=== PATIENT | female | born 1970 | race Caucasian/White ===

== ENCOUNTER 2018-10-04 06:11 | Day surgery (SDC) | payer BC, OTHER ==
[~2018-10-04 06:11] MED LIST: Lactated Ringers 1,000 ML IV SCH; Lidocaine 1%/Sod Bicarbonate in NS 8.4% 1 ML Syringe IDERM PRN; Sodium Chloride 0.9% 10 ML Syringe FLUSH PRN
[2018-10-04] MEDS ORDERED: Propofol 200 MG/20 ML SDV ONE (06:38)
[2018-10-04] MEDS ORDERED: fentaNYL 250 MCG/5 ML SDV ONE (06:38)
[2018-10-04] MEDS ORDERED: Rocuronium 50 MG/5 ML Vial ONE (06:38)
[2018-10-04] MEDS ORDERED: Midazolam 1 MG/ML 2 ML SDV ONE (06:38)
[2018-10-04] MEDS ORDERED: Lidocaine 1% PF 2 ML SDV ONE (06:38)
[2018-10-04] MEDS ORDERED: Ondansetron 4 MG/2 ML SDV ONE (06:38)
[2018-10-04] MEDS ORDERED: ceFAZolin 1 GM Vial ONE (06:42)
[2018-10-04] MEDS ORDERED: Bupivacaine 0.25% 30 ML SDV ONE (06:48)
--- NOTE | 2018-10-04 06:54 | PCM.PREANE ---
Preanesthetic Assessment - Anesthesia/Transfusion/Family Hx Anesthesia History: Prior Anesthesia Without Reaction Family History of Anesthesia Reaction: No Transfusion History: No Prior Transfusion(s) - Review of Systems General: No Symptoms Pulmonary: Cough (lisinopril makes her cough) Cardiovascular: No Symptoms Gastrointestinal: No Symptoms Neurological: No Symptoms Other: Reports: None - Physical Assessment NPO Status Date: 10/03/18 NPO Status Time: 23:00 O2 Sat by Pulse Oximetry: 96 Respiratory Rate: 16 Vital Signs: Last Vital Signs Temp 97.1 F 10/04/18 06:20 Pulse 83 10/04/18 06:20 Resp 16 10/04/18 06:20 BP 130/71 10/04/18 06:20 Pulse Ox 96 10/04/18 06:20 Height: 5 ft 2 in Weight: 81.193 kg ASA Class: 2 Mental Status: Alert & Oriented x3 Airway Class: Mallampati = 1 Dentition: Reports: Dentures (top and bottom) Thyro-Mental Finger Breadths: 3 Mouth Opening Finger Breadths: 3 ROM/Head Extension: Full Lungs: Clear to Auscultation, Normal Respiratory Effort Cardiovascular: Regular Rate, Regular Rhythm - Allergies Allergies/Adverse Reactions: Allergies Allergy/AdvReac Type Severity Reaction Status Date / Time amoxicillin [From Augmentin] Allergy Hives Verified 10/03/18 14:07 ciprofloxacin [From Cipro] Allergy Hives Verified 10/03/18 14:07 clavulanic acid Allergy Hives Verified 10/03/18 14:07 [From Augmentin] sulfamethoxazole Allergy Swelling Verified 10/03/18 14:07 [From Bactrim] trimethoprim [From Bactrim] Allergy Swelling Verified 10/03/18 14:07 - Blood Blood Available: No - Acknowledgements Anesthesia Type Planned: General Anesthesia Pt an Appropriate Candidate for the Planned Anesthesia: Yes Alternatives and Risks of Anesthesia Discussed w Pt/Guardian: Yes Pt/Guardian Understands and Agrees with Anesthesia Plan: Yes PreAnesthesia Questionnaire HEENT History: Reports: Impaired Vision Other HEENT History: wears glasses Cardiovascular History: Reports: Hypertension Respiratory History: Reports: None Genitourinary History: Reports: None 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: Musculoskeletal History: Reports: Other (See Below) Other Musculoskeletal History: right ankle sprain Neurological History: Reports: None Psychiatric History: Reports: None Endocrine/Metabolic History: Reports: None, Obesity/BMI 30+ Hematologic History: Reports: None Immunologic History: Reports: None Oncologic (Cancer) History: Reports: None Dermatologic History: Reports: None - Past Surgical History Head Surgeries/Procedures: Reports: None Cardiovascular Surgical History: Reports: None Respiratory Surgical History: Reports: None GI Surgical History: Reports: Appendectomy, Cholecystectomy, Colonoscopy Female Surgical History: Reports: Hysterectomy Male Surgical History: Reports: None Endocrine Surgical History: Reports: None Neurological Surgical History: Reports: None Oncologic Surgical History: Reports: None Dermatological Surgical History: Reports: None - SUBSTANCE USE Smoking Status *Q: Current Every Day Smoker (.5 to 1 ppd) Tobacco Use Within Last Twelve Months: Cigarettes Second Hand Smoke Exposure: Yes Days Per Week of Alcohol Use: 2 Number of Drinks Per Day: 1 Total Drinks Per Week: 2 Recreational Drug Use History: No - HOME MEDS Home Medications: Home Meds Lisinopril [Prinivil] 10 mg PO DAILY 10/03/18 [History] - CURRENT (IN HOUSE) MEDS Current Meds: Current Medications Albuterol (Proventil Neb Soln) 2.5 mg NEB ONETIME ONE Stop: 10/04/18 08:01 Lactated Ringer's (Ringers, Lactated) 1,000 mls @ 125 mls/hr IV ASDIRECTED TIA Stop: 10/04/18 23:00 Last Admin: 10/04/18 06:35 Dose: 125 mls/hr Lidocaine/Sodium Bicarbonate (Buffered Lidocaine 1% In Ns 8.4%) 0.25 ml IDERM ONETIME PRN PRN Reason: Prior to IV Start Stop: 10/04/18 18:00 Last Admin: 10/04/18 06:35 Dose: 0.25 ml Sodium Chloride (Saline Flush) 10 ml FLUSH ASDIRECTED PRN PRN Reason: Keep Vein Open Stop: 10/04/18 18:00 Discontinued Medications Albuterol (Proventil Neb Soln) 2.5 mg NEB ONETIME ONE Stop: 10/04/18 08:01 Cefazolin Sodium (Ancef) Confirm Administered Dose 2 gm .ROUTE .STK-MED ONE Stop: 10/04/18 06:43 Fentanyl (Sublimaze) Confirm Administered Dose 250 mcg .ROUTE .STK-MED ONE Stop: 10/04/18 06:39 Lidocaine HCl (Xylocaine-Mpf 1%) Confirm Administered Dose 4 ml .ROUTE .STK-MED ONE Stop: 10/04/18 06:39 Midazolam HCl (Versed 1 Mg/Ml) Confirm Administered Dose 2 mg .ROUTE .STK-MED ONE Stop: 10/04/18 06:39 Ondansetron HCl (Zofran) Confirm Administered Dose 4 mg .ROUTE .STK-MED ONE Stop: 10/04/18 06:39 Propofol (Diprivan 20 Ml) Confirm Administered Dose 200 mg .ROUTE .STK-MED ONE Stop: 10/04/18 06:39 Rocuronium [place] (Zemuron) Confirm Administered Dose 50 mg .ROUTE .STK-MED ONE Stop: 10/04/18 06:39
[2018-10-04] MEDS ORDERED: HYDROmorphone 0.5 MG/0.5 ML Syringe IVPUSH PRN (07:29)
[2018-10-04] MEDS ORDERED: Ondansetron 4 MG/2 ML SDV IVPUSH PRN (07:29)
[2018-10-04] MEDS ORDERED: Albuterol 0.083% 2.5 MG/3 ML Neb Soln NEB ONE ×2 (08:00)
[2018-10-04] MEDS ORDERED: ePHEDrine/Normal Saline 25 MG/5 ML Syringe ONE (08:00)
[2018-10-04] MEDS ORDERED: Lactated Ringers 1,000 ML ONE (08:00)
[2018-10-04] MEDS ORDERED: Ketorolac 30 MG/ML SDV ONE (08:23)
[2018-10-04] MEDS ORDERED: Dexamethasone 4 MG/ML SDV ONE (08:23)
[2018-10-04] MEDS ORDERED: HYDROmorphone 0.5 MG/0.5 ML Syringe ONE (08:24)
--- NOTE | 2018-10-04 08:55 | PCM.POSTAN ---
POST ANESTHESIA ASSESSMENT - MENTAL STATUS Mental Status: Somnolent - VITAL SIGNS Pulse Rate: 89 SaO2: 96 Resp Rate: 16 Blood Pressure: 103/55 Temperature: 98 F - RESPIRATORY Respiratory Status: Respiratory Rate WNL, Airway Patent, O2 Saturation Stable, Supplemental Oxygen - CARDIOVASCULAR CV Status: Pulse Rate WNL, Blood Pressure Stable - GASTROINTESTINAL GI Status: No Symptoms - PAIN Pain Score: 0 - POST OP HYDRATION Hydration Status: Adequate & Stable
[2018-10-04] MEDS: fentaNYL 100 MCG/2 ML SDV IVPUSH PRN ×2 (09:03→09:13)
--- NOTE | 2018-10-04 09:07 | CR ---
Right ankle: 12 fluoroscopic spot views were obtained of the right ankle. Study obtained utilizing C-arm device. Comparison: Prior right ankle study of 05/24/18. Study shows resection of multiple bony densities seen off the inferior fibula and anterior talus. Fluoroscopy time given as 24.4 seconds. Impression: 1. Resection of multiple bony densities as noted above. Diagnostic code #2
--- NOTE | 2018-10-04 10:58 | PCM48HPAN ---
Post Anesthesia Note - EVALUATION WITHIN 48HRS OF ANESTHETIC Vital Signs in Normal Range: Yes Patient Participated in Evaluation: Yes Respiratory Function Stable: Yes Airway Patent: Yes Cardiovascular Function Stable: Yes Hydration Status Stable: Yes Pain Control Satisfactory: Yes Nausea and Vomiting Control Satisfactory: Yes (slight nausea) Mental Status Recovered: Yes Pulse Rate: 89 Resp Rate: 16 Temperature: 98 F Blood Pressure: 103/55
--- NOTE | 2018-10-08 12:33 | PCM.OPNOTE ---
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
--- NOTE | 2018-10-09 14:06 | OR ---
DATE OF OPERATION: 10/04/2018 SURGEON: Howard Lucia MD OPERATION PERFORMED: Right ankle Brostrom lateral ankle reconstruction with ankle arthrotomy, open ankle arthrotomy with exostectomy, and loose body removal. 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 ANESTHESIA: General LMA with local. ANESTHESIA PROVIDER: Su Saldana CRNA. PROFILE MILL OPERATOR TAPE CONTROL: None. ESTIMATED BLOOD LOSS: Less than 5 mL. COMPLICATIONS: None. CONDITION: Stable. DESCRIPTION OF PROCEDURE: The patient was identified in the preop holding area. Proper site was marked and identified by the surgeon. The patient was taken back to the operating theater, where after adequate anesthesia, the patient's right lower extremity had a nonsterile tourniquet applied and was then sterilely prepped and draped in the usual sterile fashion. OR time-out was performed. The patient received IV antibiotics at this time. At this time, right lower extremity was exsanguinated. Tourniquet was insufflated to 250 mmHg. Standard curvilinear incision was made anterior over the distal fibula. This was taken down. The inferior retinaculum was identified and the anterior talofibular ligament was identified. They were noted to be completely stretched and torn off the distal fibula. The calcaneal fibular ligament was intact. At this time, blunt dissection was taken off the soft tissues off the anterior portion of the distal fibula. One 4.75 mm Arthrex SwiveLock screw was then placed at the mid portion about 1 cm approximately from the distal tip of the fibula and was found to be in adequate positioning. At this time, the #2 FiberWires were then passed through the anterior tibial fibular ligament and then this was sutured with reconstruction and tightening of the anterior talofibular ligament and was found to have good reconstruction at this time. At this time, the inferior retinaculum was then also oversewn. Note also that before this was done, the patient was noted to have loose bodies and large osteophytes in the subfibular region and these were resected before tensioning of the anterior talofibular ligament and reconstruction. The inferior retinaculum was then sewed into the periosteum as well as previous repair and was oversewn with 0 Vicryl. At this time, it was noted that the patient had large osteophytes on both the anterior talus as well as tibia and it was decided that at this point an open ankle arthrotomy would be needed. An anterior ankle incision was made down just near the tibialis anterior. Blunt dissection was then taken down to the capsule. Capsulotomy was performed. I was then able to remove all loose bodies, in that the patient had 3 to 4 loose bodies that were floating around the ankle at this point. Then, under direct C-arm fluoroscopy, I was able to perform an osteophyte resection over the anterior tibia as well as anterior talar neck back to good smooth border. The patient was noted to have severe grade 3/4 cartilage damage noted throughout with stripe wear noted in multiple places from the previous loose bodies. At this time, adequate saline was irrigated through both incisions. 0 Vicryl was used for closure of the capsule, 2-0 Vicryl was used subcutaneously for both incisions and 4-0 nylon was used for closure of the skin. The patient was placed in a sterile soft dressing and a posterior slab splint and sent to PACU in stable condition. VIRGINIE /[id number]
== END 2018-10-04 11:59 | disposition home or self-care (01) ==
LOC: JD.SDS 06:11
PROVIDERS: ATTEND Orthopaedic Surgery
DX: M25.371 Other instability, right ankle (principal); M25.771 Osteophyte, right ankle; M24.071 Loose body in right ankle; I10 Essential (primary) hypertension; F17.210 Nicotine dependence, cigarettes, uncomplicated; E66.9 Obesity, unspecified; Z68.30 Body mass index [BMI] 30.0-30.9, adult; Z79.899 Other long term (current) drug therapy; Z88.2 Allergy status to sulfonamides; Z88.1 Allergy status to other antibiotic agents
CPT/HCPCS: 27635; 27698; 76000; 94640; C1713; J0690; J1100; J1170; J1885; J2001; J2250; J2405; J2704; J3010; J3490; J7050; J7120; 01470

== ENCOUNTER 2018-10-07 11:41 | Emergency (ER) | payer BC ==
[2018-10-07] MEDS ORDERED: Sodium Chloride 0.9% 10 ML Syringe FLUSH PRN (12:12)
[2018-10-07] MEDS ORDERED: Sodium Chloride 0.9% 1,000 ML IV STA (12:12)
[2018-10-07] MEDS ORDERED: Metoclopramide 10 MG/2 ML SDV IVPUSH ONE (12:12)
[2018-10-07] MEDS ORDERED: HYDROmorphone 1 MG/ML Syringe IVPUSH ONE (12:14)
--- NOTE | 2018-10-07 14:05 | CT ---
CT abdomen and pelvis Technique: Multiple axial sections were obtained from above the dome of the diaphragm inferiorly through the pubic symphysis. Intravenous and oral contrast was not utilized. Study has been performed as a ureteral stone protocol. Comparison: No prior abdominal imaging is available. Findings: Kidneys show no hydronephrosis. Right and left ureters show no abnormal calcifications. No bladder calculi are seen. Small fat-containing lesion is noted within the left kidney which is felt to be benign and measures 6 mm. Visualized lung bases showed nothing acute. Noncontrast appearance of the liver and spleen appear within normal limits. Adrenal glands show no nodule. Pancreas is within normal limits. Surgical clips are seen from prior cholecystectomy. Aorta shows atherosclerotic calcification without aneurysm. No retroperitoneal adenopathy is seen. Mildly prominent lymph nodes are seen within the mesentery with adjacent haziness within the mesenteric fat. Largest lymph node measures around 1.7 cm. Appendix is not visualized. No free fluid is seen. No pelvic mass or adenopathy is seen. Bone window settings were reviewed which shows mild degenerative change most prominent at L5-S1 with disc space narrowing and vacuum phenomena. Impression: 1. Slightly prominent mesenteric lymph nodes with mild surrounding haziness within the mesenteric fat. Findings raise the possibility of mesenteric adenitis. Recommend follow-up noncontrast CT study in 4-6 months to make sure lymph nodes do not increased in size and represent other etiology. 2. No renal calculi, ureteral dilatation or ureteral stone is seen. 3. Other incidental findings as noted above. Nothing acute is otherwise seen on noncontrast CT study of the abdomen and pelvis. Diagnostic code #3
--- NOTE | 2018-10-07 14:57 | EDM.PDOC ---
ED HPI GENERAL MEDICAL PROBLEM - General Chief Complaint: Flank Pain Stated Complaint: FEVER AND BACK PAIN Time Seen by Provider: 10/07/18 11:54 Source of Information: Reports: Patient History Limitations: Reports: No Limitations - History of Present Illness INITIAL COMMENTS - FREE TEXT/NARRATIVE: The patient presents with a cough, congestion, runny nose, sinus pressure, right flank pain and fever. She says on she had surgery on her right ankle with Dr Lucia. She had some vomiting after that and went home with norcos. She does not tolerate them very well. She also has dysuria. She has had kidney stones, UTIs and interstitial cystitis. She had low grade temp at home. She has nausea and vomiting also. Onset: Gradual Duration: Day(s): Quality: Reports: Sharp Severity: Moderate Improves with: Reports: None Worsens with: Reports: None Associated Symptoms: Reports: Fever/Chills, Nausea/Vomiting. Denies: Chest Pain , Cough, Headaches, Shortness of Breath Right Flank Pain Score (Numeric/FACES): 9 - Related Data Allergies Allergy/AdvReac Type Severity Reaction Status Date / Time amoxicillin [From Augmentin] Allergy Hives Verified 10/03/18 14:07 ciprofloxacin [From Cipro] Allergy Hives Verified 10/03/18 14:07 clavulanic acid Allergy Hives Verified 10/03/18 14:07 [From Augmentin] ondansetron [From Zofran] Allergy Headache Verified 10/07/18 11:56 sulfamethoxazole Allergy Swelling Verified 10/03/18 14:07 [From Bactrim] trimethoprim [From Bactrim] Allergy Swelling Verified 10/03/18 14:07 Home Meds: Home Meds Lisinopril [Prinivil] 10 mg PO DAILY 10/03/18 [History] Azithromycin [Zithromax] 250 mg PO DAILY #6 tab 10/07/18 [Rx] Metoclopramide HCl [Reglan] 10 mg PO Q6H PRN #20 tablet 10/07/18 [Rx] oxyCODONE HCl/Acetaminophen [Percocet 5-325 mg Tablet] 1 - 2 each PO Q6HR PRN # 20 tablet 10/07/18 [Rx] Past Medical History HEENT History: Reports: Impaired Vision Other HEENT History: wears glasses Cardiovascular History: Reports: Hypertension Respiratory History: Reports: None Genitourinary History: Reports: None 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: Musculoskeletal History: Reports: Other (See Below) Other Musculoskeletal History: right ankle sprain Neurological History: Reports: None Psychiatric History: Reports: None Endocrine/Metabolic History: Reports: None, Obesity/BMI 30+ Hematologic History: Reports: None Immunologic History: Reports: None Oncologic (Cancer) History: Reports: None Dermatologic History: Reports: None - Past Surgical History Head Surgeries/Procedures: Reports: None Cardiovascular Surgical History: Reports: None Respiratory Surgical History: Reports: None GI Surgical History: Reports: Appendectomy, Cholecystectomy, Colonoscopy Female Surgical History: Reports: Hysterectomy Endocrine Surgical History: Reports: None Neurological Surgical History: Reports: None Oncologic Surgical History: Reports: None Dermatological Surgical History: Reports: None Social & Family History - Family History Family Medical History: Noncontributory - Tobacco Use Smoking Status *Q: Current Every Day Smoker Years of Tobacco use: 30 Packs/Tins Daily: 0.5 - Caffeine Use Caffeine Use: Reports: Coffee, Soda - Recreational Drug Use Recreational Drug Use: No - Living Situation & Occupation Living situation: Reports: Single Occupation: Employed ED ROS GENERAL - Review of Systems Review Of Systems: See Below Constitutional: Reports: No Symptoms HEENT: Reports: No Symptoms Respiratory: Reports: No Symptoms Cardiovascular: Reports: No Symptoms Endocrine: Reports: No Symptoms GI/Abdominal: Reports: Nausea, Vomiting. Denies: Abdominal Pain : Reports: Dysuria, Flank Pain (Right) Musculoskeletal: Reports: No Symptoms ED EXAM, GI/ABD - Physical Exam Exam: See Below Exam Limited By: No Limitations General Appearance: Alert, No Apparent Distress Ears: Normal External Exam Nose: Normal Inspection Head: Atraumatic, Normocephalic Neck: Normal Inspection Respiratory/Chest: No Respiratory Distress, Lungs Clear, Normal Breath Sounds Cardiovascular: Regular Rate, Rhythm, No Edema, No Murmur Course - Vital Signs Last Recorded V/S: Last Vital Signs Temp 98.1 F 10/07/18 11:49 Pulse 96 10/07/18 11:49 Resp 18 10/07/18 11:49 BP 142/88 H 10/07/18 11:49 Pulse Ox 97 10/07/18 11:49 - Orders/Labs/Meds Orders: Active Orders 24 hr Category Date Time Status Peripheral IV Care [RC] . DIRECTED Care 10/07/18 12:12 Active Chest 1V Frontal [CR] Stat Exams 10/07/18 12:12 Taken Sodium Chloride 0.9% [Saline Flush] Med 10/07/18 12:12 Active 10 ml FLUSH ASDIRECTED PRN ED Antiemetic Medication Reflex [OM.PC] Stat Oth 10/07/18 12:12 Ordered Peripheral IV Insertion Adult [OM.PC] Stat Oth 10/07/18 12:12 Ordered Medication Orders Sodium Chloride (Saline Flush) 10 ml FLUSH ASDIRECTED PRN PRN Reason: Keep Vein Open Last Admin: 10/07/18 12:27 Dose: 10 ml Labs: Laboratory Tests 10/07/18 10/07/18 10/07/18 Range/Units 12:10 12:10 12:25 WBC 9.28 (3.98-10.04) K/mm3 RBC 5.07 (3.98-5.22) M/mm3 Hgb 16.0 H (11.2-15.7) gm/L Hct 46.1 H (34.1-44.9) % MCV 90.9 (79.4-94.8) fl MCH 31.6 (25.6-32.2) pg MCHC 34.7 (32.2-35.5) g/dl RDW Std Deviation 41.1 (36.4-46.3) fL Plt Count 204 (182-369) K/mm3 MPV 10.1 (9.4-12.3) fl Neut % (Auto) 84.1 H (34.0-71.1) % Lymph % (Auto) 8.1 L (19.3-51.7) % [place] % (Auto) 4.7 (4.7-12.5) % Eos % (Auto) 2.7 (0.7-5.8) Baso % (Auto) 0.1 (0.1-1.2) % Neut # (Auto) 7.80 H (1.56-6.13) K/mm3 Lymph # (Auto) 0.75 L (1.18-3.74) K/mm3 [place]ue # (Auto) 0.44 H (0.24-0.36) K/mm3 Eos # (Auto) 0.25 (0.04-0.36) K/mm3 Baso # (Auto) 0.01 (0.01-0.08) K/mm3 Manual Slide Review Normal smear Sodium 140 (136-145) mEq/L Potassium 4.2 (3.5-5.1) mEq/L Chloride 105 (98-107) mEq/L Carbon Dioxide 24 (21-32) mEq/L Anion Gap 15.2 H (5-15) BUN 18 (7-18) mg/dL Creatinine 0.8 (0.55-1.02) mg/dL Est Cr Clr Drug Dosing 67.28 mL/min Estimated GFR (MDRD) > 60 (>60) mL/min BUN/Creatinine Ratio 22.5 H (14-18) Glucose 104 (74-106) mg/dL Calcium 8.8 (8.5-10.1) mg/dL Total Bilirubin 0.7 (0.2-1.0) mg/dL AST 20 (15-37) U/L ALT 42 (14-59) U/L Alkaline Phosphatase 144 H (46-116) U/L Total Protein 6.9 (6.4-8.2) g/dl Albumin 3.6 (3.4-5.0) g/dl Globulin 3.3 gm/dL Albumin/Globulin Ratio 1.1 (1-2) Urine Color Dark yellow (Yellow) Urine Appearance Slt cloudy H (Clear) Urine pH 6.0 (5.0-8.0) Ur Specific [place] 1.025 (1.005-1.030) Urine Protein Trace H (Negative) Urine Glucose (UA) Negative (Negative) Urine Ketones Negative (Negative) Urine Occult Blood 2+ H (Negative) Urine Nitrite Negative (Negative) Urine Bilirubin Negative (Negative) Urine Urobilinogen 1.0 (0.2-1.0) Ur Leukocyte Esterase Trace H (Negative) Urine RBC 10-20 H (0-5) /hpf Urine WBC 0-5 (0-5) /hpf Ur Epithelial Cells Not seen (0-5) /hpf Ur Squamous Epith Cells 5-10 H (0-5) /hpf Urine Bacteria Few (FEW) /hpf Urine Mucus Not seen (FEW) /hpf Meds: Medications Generic Name Dose Route Start Last Admin Trade Name Freq PRN Reason Stop Dose Admin Sodium Chloride 10 ml 10/07/18 12:12 10/07/18 12:27 Saline Flush FLUSH 10 ml ASDIRECTED PRN Administration Keep Vein Open Discontinued Medications Generic Name Dose Route Start Last Admin Trade Name Edel PRN Reason Stop Dose Admin Hydromorphone HCl 1 mg 10/07/18 12:14 10/07/18 12:27 Dilaudid IVPUSH 10/07/18 12:15 1 mg ONETIME ONE Administration Sodium Chloride 1,000 mls @ 1,000 mls/hr 10/07/18 12:12 10/07/18 12:27 Normal Saline IV 10/07/18 13:11 1,000 mls/hr .BOLUS STA Administration Metoclopramide HCl 10 mg 10/07/18 12:12 10/07/18 12:27 Reglan IVPUSH 10/07/18 12:13 10 mg ONETIME ONE Administration - Re-Assessments/Exams Free Text/Narrative Re-Assessment/Exam: 10/07/18 14:57 I ordered an IV NS 1L bolus, reglan 10mg IV, dilaudid 1mg IV, CXR, labs and UA. 10/07/18 14:58 Her CXR shows no infiltrate. Her WBC was normal. Her Hgb was elevated at 16. Her anion gap was elevated at 15.2. Her alk phos was elevated at 144. Her UA shows no UTI but she does have some RBCs. I ordered a CT of her abdomen and pelvis without contrast and it shows slightly prominent mesenteric lymph nodes with mild surrounding haziness within the mesenteric fat. Findings raise the possibility of mesenteric adenitis. Recommend follow-up noncontrast CT study in 4 to 6 months to make sure lymph nodes do not increase in size and represent other etiology. No renal calculi ureteral dilatation or ureteral stone is seen. Other incidental findings. Nothing acute is otherwise seen on noncontrast CT study of the abdomen and pelvis. She is feeling better. I will get her on some zithromax for her sinus infection and percocet for pain. I will also get her some reglan for the nausea and vomiting. Departure - Departure Time of Disposition: 15:05 Disposition: Home, Self-Care 01 Condition: Good Clinical Impression: Mesenteric lymphadenopathy, Post-op pain Sinusitis Qualifiers: Sinusitis location: frontal Chronicity: acute Recurrence: non-recurrent Qualified Code(s): J01.10 - Acute frontal sinusitis, unspecified Nausea and vomiting Qualifiers: Vomiting type: unspecified Vomiting Intractability: non-intractable Qualified Code(s): R11.2 - Nausea with vomiting, unspecified - Discharge Information *PRESCRIPTION DRUG MONITORING PROGRAM REVIEWED*: No *COPY OF PRESCRIPTION DRUG MONITORING REPORT IN PATIENT JADYN: No Prescriptions: oxyCODONE HCl/Acetaminophen [Percocet 5-325 mg Tablet] 1 - 2 each PO Q6HR PRN # 20 tablet PRN Reason: Pain Azithromycin [Zithromax] 250 mg PO DAILY #6 tab Metoclopramide HCl [Reglan] 10 mg PO Q6H PRN #20 tablet PRN Reason: Nausea/Vomiting Referrals: PCP,None [Primary Care Provider] - Additional Instructions: Take the percocet as needed for pain. Take the reglan every 6 hours as needed for nausea and vomiting. Take the zithromax as prescribed. There were some inflamed lymph nodes in your abdomen. The radiologist wanted a repeat CT in 4 to 6 months to evaluate them. Please see your doctor to set that up. Please return if you are worse. - My Orders Last 24 Hours: My Active Orders 10/07/18 12:12 Peripheral IV Care [RC] . DIRECTED Chest 1V Frontal [CR] Stat Sodium Chloride 0.9% [Saline Flush] 10 ml FLUSH ASDIRECTED PRN ED Antiemetic Medication Reflex [OM.PC] Stat Peripheral IV Insertion Adult [OM.PC] Stat - Assessment/Plan Last 24 Hours: My Active Orders 10/07/18 12:12 Peripheral IV Care [RC] . DIRECTED Chest 1V Frontal [CR] Stat Sodium Chloride 0.9% [Saline Flush] 10 ml FLUSH ASDIRECTED PRN ED Antiemetic Medication Reflex [OM.PC] Stat Peripheral IV Insertion Adult [OM.PC] Stat
--- NOTE | 2018-10-08 06:32 | CR ---
Chest: Portable view of the chest was obtained. Comparison: Prior chest x-ray of 09/25/18. Heart size and mediastinum are normal. Lungs are clear. Bony structures are grossly intact. Impression: 1. Nothing acute is seen on portable chest x-ray. Diagnostic code #1
== END 2018-10-07 15:14 | disposition home or self-care (01) ==
LOC: JD.ED 11:41
DX: J01.10 Acute frontal sinusitis, unspecified (principal); G89.18 Other acute postprocedural pain; I88.0 Nonspecific mesenteric lymphadenitis; R11.2 Nausea with vomiting, unspecified; I10 Essential (primary) hypertension; F17.210 Nicotine dependence, cigarettes, uncomplicated; Z88.1 Allergy status to other antibiotic agents; Z88.8 Allergy status to other drugs, medicaments and biological substances; Z79.899 Other long term (current) drug therapy
CPT/HCPCS: 36415; 71045; 74176; 80053; 81001; 85025; 96361; 96374; 96375; 99284; J1170; J2765; J7040

== ENCOUNTER 2019-04-20 19:45 | Emergency (ER) | payer SELFPAY ==
[2019-04-20] MEDS ORDERED: Pseudoephedrine 30 MG Tab PO ONE (20:22)
--- NOTE | 2019-04-20 20:28 | EDM.PDOC ---
ED HPI GENERAL MEDICAL PROBLEM - General Chief Complaint: ENT Problem Stated Complaint: EAR ACHE RIGHT EAR Time Seen by Provider: 04/20/19 20:01 Source of Information: Reports: Patient History Limitations: Reports: No Limitations - History of Present Illness INITIAL COMMENTS - FREE TEXT/NARRATIVE: 48 y/o F with R ear pain and fullness x 1 day. She's had nasal congestion, mild sore throat, and mild cough x 3 days. No fever. Today had worsening feeling of sharp R ear pain and ear fullness/decreased hearing from R ear. No drainage. Hasn't taken anything for pain. No additional complaint. Right Ear Pain Score (Numeric/FACES): 8 - Related Data Allergies Allergy/AdvReac Type Severity Reaction Status Date / Time amoxicillin [From Augmentin] Allergy Hives Verified 10/03/18 14:07 ciprofloxacin [From Cipro] Allergy Hives Verified 10/03/18 14:07 clavulanic acid Allergy Hives Verified 10/03/18 14:07 [From Augmentin] nickel Allergy Hives Verified 04/20/19 20:02 ondansetron [From Zofran] Allergy Headache Verified 10/07/18 11:56 sulfamethoxazole Allergy Swelling Verified 10/03/18 14:07 [From Bactrim] trimethoprim [From Bactrim] Allergy Swelling Verified 10/03/18 14:07 fish Allergy Airway Uncoded 04/20/19 20:02 Tightness Home Meds: Home Meds Metoclopramide HCl [Reglan] 10 mg PO Q6H PRN #20 tablet 10/07/18 [Rx] Pseudoephedrine [Sudogest] 30 mg PO QID PRN #30 tablet 04/20/19 [Rx] Past Medical History HEENT History: Reports: Impaired Vision Other HEENT History: wears glasses Cardiovascular History: Reports: Hypertension Respiratory History: Reports: None Genitourinary History: Reports: None 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: Reports: Musculoskeletal History: Reports: Other (See Below) Other Musculoskeletal History: right ankle sprain Neurological History: Reports: None Psychiatric History: Reports: None Endocrine/Metabolic History: Reports: None, Obesity/BMI 30+ Hematologic History: Reports: None Immunologic History: Reports: None Oncologic (Cancer) History: Reports: None Dermatologic History: Reports: None - Past Surgical History Head Surgeries/Procedures: Reports: None Cardiovascular Surgical History: Reports: None Respiratory Surgical History: Reports: None GI Surgical History: Reports: Appendectomy, Cholecystectomy, Colonoscopy Female Surgical History: Reports: Hysterectomy Endocrine Surgical History: Reports: None Neurological Surgical History: Reports: None Musculoskeletal Surgical History: Reports: Other (See Below) Other Musculoskeletal Surgeries/Procedures:: right ankle rebuilt Oncologic Surgical History: Reports: None Dermatological Surgical History: Reports: None Social & Family History - Family History Family Medical History: Noncontributory - Tobacco Use Smoking Status *Q: Current Every Day Smoker Years of Tobacco use: 30 Packs/Tins Daily: 1 - Caffeine Use Caffeine Use: Reports: Coffee, Soda - Recreational Drug Use Recreational Drug Use: No - Living Situation & Occupation Living situation: Reports: Single Occupation: Employed ED ROS ENT - Review of Systems Review Of Systems: See Below Constitutional: Denies: Fever HEENT: Reports: Ear Pain, Rhinitis. Denies: Ear Discharge Respiratory: Reports: Cough. Denies: Shortness of Breath Cardiovascular: Denies: Chest Pain Endocrine: Reports: No Symptoms GI/Abdominal: Denies: Vomiting Musculoskeletal: Reports: No Symptoms Skin: Reports: No Symptoms Neurological: Reports: No Symptoms ED EXAM, ENT - Physical Exam Exam: See Below Exam Limited By: No Limitations General Appearance: Alert, WD/WN, No Apparent Distress Eye Exam: Bilateral Eye: PERRL Ears: Normal External Exam, Normal Canal, Hearing Grossly Normal, Other (R TM with clear effusion, minimal erythema, not dull or bulging. L TM normal. ) Nose: Normal Inspection Mouth/Throat: Normal Inspection, Normal Oropharynx. No: Throat Swelling, Tonsillar Erythema, Tonsillar Exudates, Tonsillar Swelling Head: Atraumatic, Normocephalic Neck: Normal Inspection, Supple, Full Range of Motion Respiratory/Chest: No Respiratory Distress, Lungs Clear, Normal Breath Sounds, No Accessory Muscle Use Cardiovascular: Normal Peripheral Pulses, Regular Rate, Rhythm GI/Abdominal: Soft, Non-Tender Extremities: Normal Inspection Neurological: Alert, Oriented, Normal Cognition Psychiatric: Normal Affect, Normal Mood Skin: Warm, Dry, Intact, Normal Color Course - Vital Signs Last Recorded V/S: Last Vital Signs Temp 36.2 C 04/20/19 20:06 Pulse 76 04/20/19 20:06 Resp 20 04/20/19 20:06 BP 156/84 H 04/20/19 20:06 Pulse Ox 98 10/05/19 20:06 - Orders/Labs/Meds Orders: Active Orders 24 hr Category Date Time Status Pseudoephedrine [Sudogest] Med 04/20/19 20:22 Once 30 mg PO ONETIME ONE - Re-Assessments/Exams Free Text/Narrative Re-Assessment/Exam: 04/20/19 20:25 No evidence of otitis media. She is very congested and has some fluid behind the R TM. Advised decongestants, supportive care. Discussed return precautions. Departure - Departure Time of Disposition: 20:26 Disposition: Home, Self-Care 01 Clinical Impression: Otalgia of right ear, Viral upper respiratory illness - Discharge Information Prescriptions: Pseudoephedrine [Sudogest] 30 mg PO QID PRN #30 tablet PRN Reason: nasal congestion Referrals: PCP,None [Primary Care Provider] - Additional Instructions: 1. Take ibuprofen and/or acetaminophen according to bottle directions for pain 2. Take an over the counter decongestant such as pseudoephedrine. You can also use an over the counter decongestant nasal spray. 3. Follow up with a regular doctor in 2-3 days if not improving. Call [phone] to schedule here. Especially if you develop fever, drainage from the ear, or ongoing/worsening pain your ear should be rechecked to see if you are developing an ear infection. Ideally follow up with regular doctor or urgent care, or return to the ED as needed. - My Orders Last 24 Hours: My Active Orders 04/20/19 20:22 Pseudoephedrine [Sudogest] 30 mg PO ONETIME ONE - Assessment/Plan Last 24 Hours: My Active Orders 04/20/19 20:22 Pseudoephedrine [Sudogest] 30 mg PO ONETIME ONE
== END 2019-04-20 20:37 | disposition home or self-care (01) ==
LOC: JD.ED 19:45
DX: J39.8 Other specified diseases of upper respiratory tract (principal); H92.01 Otalgia, right ear; I10 Essential (primary) hypertension; F17.210 Nicotine dependence, cigarettes, uncomplicated; E66.9 Obesity, unspecified; Z68.30 Body mass index [BMI] 30.0-30.9, adult; Z88.0 Allergy status to penicillin; Z88.1 Allergy status to other antibiotic agents; Z91.013 Allergy to seafood; Z91.09 Other allergy status, other than to drugs and biological substances; Z88.8 Allergy status to other drugs, medicaments and biological substances
CPT/HCPCS: 99282; A9270

== ENCOUNTER 2019-07-14 18:24 | Observation (INO) | payer MEDICAID ==
[2019-07-14] MEDS ORDERED: Aspirin 81 MG Tab.Chew PO ONE (18:49)
--- NOTE | 2019-07-14 18:49 | EDM.PDOC ---
<Clarke Santizo - Last Filed: 07/14/19 18:43> ED HPI GENERAL MEDICAL PROBLEM - General Chief Complaint: Chest Pain Stated Complaint: CHEST PAIN Time Seen by Provider: 07/14/19 18:43 Left Chest Pain Score (Numeric/FACES): 8 - Related Data Allergies Allergy/AdvReac Type Severity Reaction Status Date / Time amoxicillin [From Augmentin] Allergy Hives Verified 10/03/18 14:07 ciprofloxacin [From Cipro] Allergy Hives Verified 10/03/18 14:07 clavulanic acid Allergy Hives Verified 10/03/18 14:07 [From Augmentin] nickel Allergy Hives Verified 04/20/19 20:02 ondansetron [From Zofran] Allergy Headache Verified 10/07/18 11:56 sulfamethoxazole Allergy Swelling Verified 10/03/18 14:07 [From Bactrim] trimethoprim [From Bactrim] Allergy Swelling Verified 10/03/18 14:07 fish Allergy Airway Uncoded 04/20/19 20:02 Tightness Home Meds: Home Meds . [No Known Home Meds] 07/14/19 [History] Past Medical History HEENT History: Reports: Impaired Vision Other HEENT History: wears glasses Cardiovascular History: Reports: Hypertension Respiratory History: Reports: None Genitourinary History: Reports: None VP PURCHASING History: Reports: Musculoskeletal History: Reports: Other (See Below) Other Musculoskeletal History: right ankle sprain Neurological History: Reports: None Psychiatric History: Reports: None Endocrine/Metabolic History: Reports: None, Obesity/BMI 30+ Hematologic History: Reports: None Immunologic History: Reports: None Oncologic (Cancer) History: Reports: None Dermatologic History: Reports: None - Past Surgical History Head Surgeries/Procedures: Reports: None Cardiovascular Surgical History: Reports: None Respiratory Surgical History: Reports: None GI Surgical History: Reports: Appendectomy, Cholecystectomy, Colonoscopy Female Surgical History: Reports: Hysterectomy Endocrine Surgical History: Reports: None Neurological Surgical History: Reports: None Musculoskeletal Surgical History: Reports: Other (See Below) Other Musculoskeletal Surgeries/Procedures:: right ankle rebuilt Oncologic Surgical History: Reports: None Dermatological Surgical History: Reports: None Social & Family History - Family History Family Medical History: Noncontributory - Tobacco Use Smoking Status *Q: Current Every Day Smoker Years of Tobacco use: 30 Packs/Tins Daily: 1 - Caffeine Use Caffeine Use: Reports: Coffee, Soda - Recreational Drug Use Recreational Drug Use: No - Living Situation & Occupation Living situation: Reports: Single Occupation: Employed Course - Vital Signs Last Recorded V/S: Last Vital Signs Temp 36.0 C 07/14/19 18:32 Pulse 65 07/14/19 18:32 Resp 22 H 07/14/19 18:32 BP 145/114 H 07/14/19 19:09 Pulse Ox 100 07/14/19 18:32 - Orders/Labs/Meds Orders: Active Orders 24 hr Category Date Time Status Patient Status [ADT] Routine ADT 07/14/19 23:02 Active EKG Documentation Completion [RC] STAT Care 07/14/19 18:51 Active EKG Documentation Completion [RC] STAT Care 07/14/19 21:57 Active Chest 1V Frontal [CR] Stat Exams 07/14/19 18:52 Taken Lactated Ringers [Ringers, Lactated] 1,000 ml Med 07/14/19 19:00 Active IV ASDIRECTED Medication Orders Lactated Ringer's (Ringers, Lactated) 1,000 mls @ 25 mls/hr IV ASDIRECTED ITA Last Admin: 07/14/19 19:06 Dose: 25 mls/hr Labs: Laboratory Tests 07/14/19 07/14/19 07/14/19 Range/Units 18:42 18:42 18:42 WBC 9.41 (3.98-10.04) K/mm3 RBC 4.83 (3.98-5.22) M/mm3 Hgb 15.1 (11.2-15.7) gm/dl Hct 43.9 (34.1-44.9) % MCV 90.9 (79.4-94.8) fl MCH 31.3 (25.6-32.2) pg MCHC 34.4 (32.2-35.5) g/dl RDW Std Deviation 42.4 (36.4-46.3) fL Plt Count 226 (182-369) K/mm3 MPV 10.4 (9.4-12.3) fl Neut % (Auto) Cancelled Lymph % (Auto) Cancelled Mccormick % (Auto) Cancelled Eos % (Auto) Cancelled Baso % (Auto) Cancelled Neut # (Auto) Cancelled Lymph # (Auto) Cancelled Mccormick # (Auto) Cancelled Eos # (Auto) Cancelled Baso # (Auto) Cancelled Neutrophils % (Manual) 65 H (40-60) % Band Neutrophils % 1 (0-10) % Lymphocytes % (Manual) 17 L (20-40) % Atypical Lymphs % 0 % Monocytes % (Manual) 10 (2-10) % Eosinophils % (Manual) 5 (0.7-5.8) % Basophils % (Manual) 2 H (0.1-1.2) Manual Slide Review Cancelled Platelet Estimate Adequate RBC Morph Comment Normal PT 10.4 (9.7-12.0) SECONDS INR 0.95 APTT 27 (22-31) SECONDS D-Dimer, Quantitative (0.19-0.50) mg/L Sodium 141 (136-145) mEq/L Potassium 3.9 (3.5-5.1) mEq/L Chloride 106 (98-107) mEq/L Carbon Dioxide 27 (21-32) mEq/L Anion Gap 11.9 (5-15) BUN 18 (7-18) mg/dL Creatinine 0.9 (0.55-1.02) mg/dL Est Cr Clr Drug Dosing 59.15 mL/min Estimated GFR (MDRD) > 60 (>60) mL/min BUN/Creatinine Ratio 20.0 H (14-18) Glucose 98 (74-106) mg/dL Calcium 8.9 (8.5-10.1) mg/dL Total Bilirubin 0.4 (0.2-1.0) mg/dL AST 17 (15-37) U/L ALT 35 (14-59) U/L Alkaline Phosphatase 130 H (46-116) U/L Troponin I < 0.017 (0.00-0.056) ng/mL Total Protein 6.7 (6.4-8.2) g/dl Albumin 3.8 (3.4-5.0) g/dl Globulin 2.9 gm/dL Albumin/Globulin Ratio 1.3 (1-2) 07/14/19 07/14/19 Range/Units 18:42 22:06 WBC (3.98-10.04) K/mm3 RBC (3.98-5.22) M/mm3 Hgb (11.2-15.7) gm/dl Hct (34.1-44.9) % MCV (79.4-94.8) fl MCH (25.6-32.2) pg MCHC (32.2-35.5) g/dl RDW Std Deviation (36.4-46.3) fL Plt Count (182-369) K/mm3 MPV (9.4-12.3) fl Neut % (Auto) Lymph % (Auto) Mccormick % (Auto) Eos % (Auto) Baso % (Auto) Neut # (Auto) Lymph # (Auto) Mccormick # (Auto) Eos # (Auto) Baso # (Auto) Neutrophils % (Manual) (40-60) % Band Neutrophils % (0-10) % Lymphocytes % (Manual) (20-40) % Atypical Lymphs % % Monocytes % (Manual) (2-10) % Eosinophils % (Manual) (0.7-5.8) % Basophils % (Manual) (0.1-1.2) Manual Slide Review Platelet Estimate RBC Morph Comment PT (9.7-12.0) SECONDS INR APTT (22-31) SECONDS D-Dimer, Quantitative 0.22 (0.19-0.50) mg/L Sodium (136-145) mEq/L Potassium (3.5-5.1) mEq/L Chloride (98-107) mEq/L Carbon Dioxide (21-32) mEq/L Anion Gap (5-15) BUN (7-18) mg/dL Creatinine (0.55-1.02) mg/dL Est Cr Clr Drug Dosing mL/min Estimated GFR (MDRD) (>60) mL/min BUN/Creatinine Ratio (14-18) Glucose (74-106) mg/dL Calcium (8.5-10.1) mg/dL Total Bilirubin (0.2-1.0) mg/dL AST (15-37) U/L ALT (14-59) U/L Alkaline Phosphatase (46-116) U/L Troponin I < 0.017 (0.00-0.056) ng/mL Total Protein (6.4-8.2) g/dl Albumin (3.4-5.0) g/dl Globulin gm/dL Albumin/Globulin Ratio (1-2) Meds: Medications Generic Name Dose Route Start Last Admin Trade Name Freq PRN Reason Stop Dose Admin Lactated Ringer's 1,000 mls @ 25 mls/hr 07/14/19 19:00 07/14/19 19:06 Ringers, Lactated IV 25 mls/hr ASDIRECTED TIA Administration Discontinued Medications Generic Name Dose Route Start Last Admin Trade Name Edel PRN Reason Stop Dose Admin Aspirin 324 mg 07/14/19 18:49 07/14/19 18:55 Aspirin PO 07/14/19 18:50 324 mg ONETIME ONE Administration Aspirin Confirm 07/14/19 18:51 07/14/19 19:10 Aspirin Administered 07/14/19 18:52 Not Given Dose 324 mg .ROUTE .STK-MED ONE Lorazepam 1 mg 07/14/19 19:55 07/14/19 20:00 Ativan IVPUSH 07/14/19 19:56 1 mg ONETIME ONE Administration Nitroglycerin 0.4 mg 07/14/19 18:49 07/14/19 19:09 Nitrostat SL 0.4 mg Q5M PRN Administration Chest Pain Nitroglycerin Confirm 07/14/19 18:51 07/14/19 19:10 Nitrostat Administered 07/14/19 18:52 Not Given Dose 0.4 mg .ROUTE .STK-MED ONE Departure - Departure Disposition: Refer to Observation Clinical Impression: Atypical chest pain, Diaphoresis, Tobacco abuse, History of hypertension, Family history of heart disease, Family history of vascular disease Sepsis Event Note - Evaluation Sepsis Screening Result: No Definite Risk - Focused Exam Vital Signs: Vital Signs Temp Pulse Resp BP BP Pulse Ox 07/14/19 19:09 145/114 H 07/14/19 19:01 132/84 07/14/19 18:56 157/100 H 07/14/19 18:32 36.0 C 65 22 H 134/92 H 100 Date Exam was Performed: 07/14/19 Time Exam was Performed: 18:43 - My Orders Last 24 Hours: My Active Orders 07/14/19 21:57 EKG Documentation Completion [RC] STAT 07/14/19 23:02 Patient Status [ADT] Routine - Assessment/Plan Last 24 Hours: My Active Orders 07/14/19 21:57 EKG Documentation Completion [RC] STAT 07/14/19 23:02 Patient Status [ADT] Routine <Douglas Guerrero - Last Filed: 07/14/19 23:09> ED HPI GENERAL MEDICAL PROBLEM - General Source of Information: Reports: Patient, Family History Limitations: Reports: No Limitations - History of Present Illness INITIAL COMMENTS - FREE TEXT/NARRATIVE: TRIAGE NOTE -- pt was grocery shopping and started with left arm pain and then progressed to getting stronger and then chest pain and jaw pain and broke out in a sweat and also feels lightheaded. no previous cardiac history. does smoke for about 30 years. pt states had hypertension in the past and also baby aspirin but not for about the past year As above. Patient was shopping with her and was walking when pain started in her left shoulder seem to radiate down the left arm and up into the left side of the neck. It progressed to "crushing" pain left chest. Sweating is noted. says she was pale and did not look altogether well. The whole episode lasted for about 30 minutes and she came to the ER. She was still complaining of some pain in the ER which was equivocally relieved to some extent by sublingual nitroglycerin. No intervention or measures taken to alleviate symptoms prior to arrival. She did note some shortness of breath especially toward the end of the episode. Risk factors consist of long cigarette smoking history. There is family history of heart disease in that her father had an NV at age 50. Other members have had heart disease but everyone including her father lived into their 70s and 80s. The patient's younger sister apparently had an aneurysm producing a brain bleed. Past Medical History - History Comment History Comment: Apparent history of hypertension. Patient has not had any medical attention nor has she taken any medication for at least a year. Social & Family History - Family History Other Cardiac Family History: As noted above somewhat of a family history of heart disease. Father had first NV at age 50 and in his 70s. Heart disease cause of . Other family members including grandparents with heart disease but as noted all managed to live to their 70s and 80s. Patient's younger sister did have a vascular issue and that she had an aneurysm producing a brain bleed. ED ROS GENERAL - Review of Systems Review Of Systems: Comprehensive ROS is negative, except as noted in HPI. ED EXAM, GENERAL - Physical Exam Exam: See Below Exam Limited By: No Limitations General Appearance: Alert, WD/WN, No Apparent Distress Ears: Normal External Exam Nose: Normal Inspection Throat/Mouth: Normal Inspection Head: Atraumatic, Normocephalic Neck: Normal Inspection, Supple, Non-Tender, Other (Mild jugular venous distention and hepatojugular reflux) Respiratory/Chest: No Respiratory Distress, Lungs Clear, Normal Breath Sounds Cardiovascular: Regular Rate, Rhythm, No Edema, No Gallop GI/Abdominal: Soft, Non-Tender Back Exam: Normal Inspection Extremities: Normal Inspection, Non-Tender, No Pedal Edema Neurological: Alert, Oriented, Normal Cognition, No Motor/Sensory Deficits Psychiatric: Normal Affect Skin Exam: Warm, Dry Course - Re-Assessments/Exams Free Text/Narrative Re-Assessment/Exam: 07/14/19 23:07 The patient has come in presenting a history which is worrisome for heart disease/acute cardiac event. Chest pain was atypical but associated with diaphoresis. EKGs have been unremarkable and troponins well within the reference range. Repeated at [address] Castañeda. The patient needs to be in observation status for additional evaluation. This is in light of her history of hypertension, cigarette smoking for 30 years, and family history of myocardial infarction and other cardiac and vascular issues. Departure - Departure Time of Disposition: 23:05 Sepsis Event Note - Focused Exam Date Exam was Performed: 07/14/19 Time Exam was Performed: 23:04 - My Orders Last 24 Hours: My Active Orders 07/14/19 21:57 EKG Documentation Completion [RC] STAT 07/14/19 23:02 Patient Status [ADT] Routine - Assessment/Plan Last 24 Hours: My Active Orders 07/14/19 21:57 EKG Documentation Completion [RC] STAT 07/14/19 23:02 Patient Status [ADT] Routine
[2019-07-14] MEDS ORDERED: Aspirin 81 MG Tab.Chew ONE (18:51)
[2019-07-14] MEDS ORDERED: Nitroglycerin 0.4 MG Tab.SL ONE (18:51)
[2019-07-14] MEDS: Nitroglycerin 0.4 MG Tab.SL SL PRN ×3 (18:56→19:09)
[2019-07-14] MEDS ORDERED: Lactated Ringers 1,000 ML IV SCH (19:00)
[2019-07-14] MEDS ORDERED: LORazepam 2 MG/ML SDV IVPUSH ONE (19:55)
[2019-07-14] MEDS ORDERED: traZODone 50 MG Tab PO PRN (23:42)
[2019-07-14] MEDS: Nicotine 21 MG/24 Hr Patch TRDERM SCH (23:55)
--- NOTE | 2019-07-15 06:49 | PCM.HP.2 ---
H&P History of Present Illness - General Date of Service: 07/15/19 Admit Problem/Dx: Admission Diagnosis/Problem Admission Diagnosis/Problem Chest pain Source of Information: Patient, Old Records, Provider, RN, RN Notes Reviewed History Limitations: Reports: No Limitations - History of Present Illness Initial Comments - Free Text/Narative: Homa Juarez is a 49 yo female who presented to ED on the evening of 2018 with chest pain. Patient reports she was out grocery shopping and began to have left arm pain which increased in severity. She also reported chest pain and jaw pain, along with becoming diaphoretic and lightheaded. Denies any prior cardiac history but does smoke a pack a day and has for the last 30 years. One point she reported the pain as "crushing". Ports pain was located in her left chest. After about 30 minutes she decided to come the emergency room. She was still complaining of some chest pain in the ER and was given nitroglycerin which relieved the symptoms. She noted some shortness of breath towards the end of her episode. Reports family history of a father who had an SC at age 50 and a younger sister who apparently had an aneurysm which resulted in a head bleed. The ED temp was 36.0 Celsius. Pulse 65. Respirations 22. Blood pressure 145/ 114. Pulse ox 100%. In the ED dual twelve-lead EKGs were performed throughout her stay both showing sinus rhythm with no ST segment abnormalities or other signs of ischemia, heart rate in the 70s. Labs were obtained and were grossly normal. WBC was 9.41. Hemoglobin 15.1. Hematocrit 43.9. She is normocytic. Platelets are good at 226,000. PT is 10.5. INR 0.95. APTT 27. D-dimer 0.22. Sodium 141. Potassium 3.9. Chloride 106. Carbon oxide 27. Anion gap 11.9. BUN is 18. Creatinine 0.9. GFR greater than 60. Glucose 98. Calcium 8.9. AST 17, ALT 35, alk phos slightly elevated at 130. Troponins x3 were negative at less than 0.017. Protein is 6.7. Albumin 3.8. 324 mg aspirin 1 mg Ativan and 0.4 nitro. She is also started on 25 mils an hour of LR. There is a history of hypertension but was taken off of medications after lifestyle changes and obesity. As noted prior she is a current every day smoker. She does not have a PCP. Left Chest Pain Score (Numeric/FACES): 0 - Related Data Allergies/Adverse Reactions: Allergies Allergy/AdvReac Type Severity Reaction Status Date / Time amoxicillin [From Augmentin] Allergy Hives Verified 07/14/19 23:21 ciprofloxacin [From Cipro] Allergy Hives Verified 07/14/19 23:21 clavulanic acid Allergy Hives Verified 07/14/19 23:21 [From Augmentin] nickel Allergy Hives Verified 07/14/19 23:21 ondansetron [From Zofran] Allergy Headache Verified 07/14/19 23:21 sulfamethoxazole Allergy Swelling Verified 07/14/19 23:21 [From Bactrim] trimethoprim [From Bactrim] Allergy Swelling Verified 07/14/19 23:21 fish Allergy Airway Uncoded 07/14/19 23:21 Tightness Home Medications: Home Meds . [No Known Home Meds] 07/14/19 [History] Past Medical History HEENT History: Reports: Impaired Vision Other HEENT History: wears glasses Cardiovascular History: Reports: Hypertension Respiratory History: Reports: None Genitourinary History: Reports: None DIRECTOR MEDICAL SURGICAL History: Reports: Musculoskeletal History: Reports: Other (See Below) Other Musculoskeletal History: right ankle sprain Neurological History: Reports: None Psychiatric History: Reports: None Endocrine/Metabolic History: Reports: Obesity/BMI 30+ Hematologic History: Reports: None Immunologic History: Reports: None Oncologic (Cancer) History: Reports: None Dermatologic History: Reports: None - Past Surgical History Head Surgeries/Procedures: Reports: None HEENT Surgical History: Reports: None Cardiovascular Surgical History: Reports: None Respiratory Surgical History: Reports: None GI Surgical History: Reports: Appendectomy, Cholecystectomy, Colonoscopy Female Surgical History: Reports: Hysterectomy Endocrine Surgical History: Reports: None Neurological Surgical History: Reports: None Musculoskeletal Surgical History: Reports: Other (See Below) Other Musculoskeletal Surgeries/Procedures:: right ankle rebuilt Oncologic Surgical History: Reports: None Dermatological Surgical History: Reports: None - History Comment History Comment: Apparent history of hypertension. Patient has not had any medical attention nor has she taken any medication for at least a year. Social & Family History - Family History Family Medical History: Noncontributory Other Cardiac Family History: As noted above somewhat of a family history of heart disease. Father had first SC at age 50 and in his 70s. Heart disease cause of . Other family members including grandparents with heart disease but as noted all managed to live to their 70s and 80s. Patient's younger sister did have a vascular issue and that she had an aneurysm producing a brain bleed. - Tobacco Use Smoking Status *Q: Current Every Day Smoker Years of Tobacco use: 30 Packs/Tins Daily: 1 Used Tobacco, but Quit: No Second Hand Smoke Exposure: No - Caffeine Use Caffeine Use: Reports: Coffee, Soda Other Caffeine Use: one cup of coffee daily and 2-3 cups soda every day - Recreational Drug Use Recreational Drug Use: No - Living Situation & Occupation Living situation: Reports: Single Occupation: Employed H&P Review of Systems - Review of Systems: Review Of Systems: See Below General: Reports: No Symptoms. Denies: Fever, Chills, Malaise, Weakness, Fatigue HEENT: Reports: No Symptoms. Denies: Headaches, Sore Throat Pulmonary: Reports: Cough, Sputum. Denies: Shortness of Breath, Wheezing Cardiovascular: Reports: Chest Pain (Mild chest pressure ). Denies: Palpitations, Dyspnea on Exertion Gastrointestinal: Reports: No Symptoms. Denies: Abdominal Pain, Constipation, Diarrhea, Nausea, Vomiting Genitourinary: Reports: No Symptoms. Denies: Pain Musculoskeletal: Reports: Shoulder Pain (mild left ) Skin: Reports: No Symptoms. Denies: Cyanosis Psychiatric: Reports: No Symptoms. Denies: Confusion Neurological: Reports: No Symptoms. Denies: Pre-Existing Deficit, Difficulty Walking, Gait Disturbance Hematologic/Lymphatic: Reports: No Symptoms Immunologic: Reports: No Symptoms Exam - Exam Exam: See Below - Vital Signs Vital Signs: Last Vital Signs Temp 97.9 F 07/15/19 05:49 Pulse 77 07/15/19 05:49 Resp 18 07/15/19 05:49 BP 127/68 07/15/19 05:49 Pulse Ox 94 L 07/15/19 05:49 Weight: 170 lb 9.6 oz - Exam General: Alert, Oriented, Cooperative. No: Mild Distress HEENT: Conjunctiva Clear, EACs Clear, EOMI, Hearing Intact, Mucosa Moist & [place] , Nares Patent, Posterior Pharynx Clear, PERRLA Neck: Supple, Trachea Midline Lungs: Clear to Auscultation, Normal Respiratory Effort Cardiovascular: Regular Rate, Regular Rhythm GI/Abdominal Exam: Normal Bowel Sounds, Soft, Non-Tender, No Distention, No Abnormal Bruit (Female) Exam: Deferred Rectal (Female) Exam: Deferred Back Exam: Normal Inspection, Full Range of Motion Extremities: Normal Inspection, Normal Range of Motion, Non-Tender, No Pedal Edema, Normal Capillary Refill Skin: Warm, Dry, Intact Neurological: Cranial Nerves Intact (Grossly ) Neuro Extensive - Mental Status: Alert, Oriented x3, Normal Mood/Affect - Patient Data Lab Results Last 24 hrs: Laboratory Results - last 24 hr 07/14/19 07/14/19 07/14/19 Range/Units 18:42 18:42 18:42 WBC 9.41 (3.98-10.04) K/mm3 RBC 4.83 (3.98-5.22) M/mm3 Hgb 15.1 (11.2-15.7) gm/dl Hct 43.9 (34.1-44.9) % MCV 90.9 (79.4-94.8) fl MCH 31.3 (25.6-32.2) pg MCHC 34.4 (32.2-35.5) g/dl RDW Std Deviation 42.4 (36.4-46.3) fL Plt Count 226 (182-369) K/mm3 MPV 10.4 (9.4-12.3) fl Neut % (Auto) Cancelled Lymph % (Auto) Cancelled Garrett % (Auto) Cancelled Eos % (Auto) Cancelled Baso % (Auto) Cancelled Neut # (Auto) Cancelled Lymph # (Auto) Cancelled Garrett # (Auto) Cancelled Eos # (Auto) Cancelled Baso # (Auto) Cancelled Neutrophils % (Manual) 65 H (40-60) % Band Neutrophils % 1 (0-10) % Lymphocytes % (Manual) 17 L (20-40) % Atypical Lymphs % 0 % Monocytes % (Manual) 10 (2-10) % Eosinophils % (Manual) 5 (0.7-5.8) % Basophils % (Manual) 2 H (0.1-1.2) Manual Slide Review Cancelled Platelet Estimate Adequate RBC Morph Comment Normal PT 10.4 (9.7-12.0) SECONDS INR 0.95 APTT 27 (22-31) SECONDS D-Dimer, Quantitative (0.19-0.50) mg/L Sodium 141 (136-145) mEq/L Potassium 3.9 (3.5-5.1) mEq/L Chloride 106 (98-107) mEq/L Carbon Dioxide 27 (21-32) mEq/L Anion Gap 11.9 (5-15) BUN 18 (7-18) mg/dL Creatinine 0.9 (0.55-1.02) mg/dL Est Cr Clr Drug Dosing 59.15 mL/min Estimated GFR (MDRD) > 60 (>60) mL/min BUN/Creatinine Ratio 20.0 H (14-18) Glucose 98 (74-106) mg/dL Calcium 8.9 (8.5-10.1) mg/dL Total Bilirubin 0.4 (0.2-1.0) mg/dL AST 17 (15-37) U/L ALT 35 (14-59) U/L Alkaline Phosphatase 130 H (46-116) U/L Troponin I < 0.017 (0.00-0.056) ng/mL Total Protein 6.7 (6.4-8.2) g/dl Albumin 3.8 (3.4-5.0) g/dl Globulin 2.9 gm/dL Albumin/Globulin Ratio 1.3 (1-2) 07/14/19 07/14/19 07/15/19 Range/Units 18:42 22:06 02:10 WBC (3.98-10.04) K/mm3 RBC (3.98-5.22) M/mm3 Hgb (11.2-15.7) gm/dl Hct (34.1-44.9) % MCV (79.4-94.8) fl MCH (25.6-32.2) pg MCHC (32.2-35.5) g/dl RDW Std Deviation (36.4-46.3) fL Plt Count (182-369) K/mm3 MPV (9.4-12.3) fl Neut % (Auto) Lymph % (Auto) Garrett % (Auto) Eos % (Auto) Baso % (Auto) Neut # (Auto) Lymph # (Auto) Garrett # (Auto) Eos # (Auto) Baso # (Auto) Neutrophils % (Manual) (40-60) % Band Neutrophils % (0-10) % Lymphocytes % (Manual) (20-40) % Atypical Lymphs % % Monocytes % (Manual) (2-10) % Eosinophils % (Manual) (0.7-5.8) % Basophils % (Manual) (0.1-1.2) Manual Slide Review Platelet Estimate RBC Morph Comment PT (9.7-12.0) SECONDS INR APTT (22-31) SECONDS D-Dimer, Quantitative 0.22 (0.19-0.50) mg/L Sodium (136-145) mEq/L Potassium (3.5-5.1) mEq/L Chloride (98-107) mEq/L Carbon Dioxide (21-32) mEq/L Anion Gap (5-15) BUN (7-18) mg/dL Creatinine (0.55-1.02) mg/dL Est Cr Clr Drug Dosing mL/min Estimated GFR (MDRD) (>60) mL/min BUN/Creatinine Ratio (14-18) Glucose (74-106) mg/dL Calcium (8.5-10.1) mg/dL Total Bilirubin (0.2-1.0) mg/dL AST (15-37) U/L ALT (14-59) U/L Alkaline Phosphatase (46-116) U/L Troponin I < 0.017 < 0.017 (0.00-0.056) ng/mL Total Protein (6.4-8.2) g/dl Albumin (3.4-5.0) g/dl Globulin gm/dL Albumin/Globulin Ratio (1-2) 07/15/19 Range/Units 05:12 WBC (3.98-10.04) K/mm3 RBC (3.98-5.22) M/mm3 Hgb (11.2-15.7) gm/dl Hct (34.1-44.9) % MCV (79.4-94.8) fl MCH (25.6-32.2) pg MCHC (32.2-35.5) g/dl RDW Std Deviation (36.4-46.3) fL Plt Count (182-369) K/mm3 MPV (9.4-12.3) fl Neut % (Auto) Lymph % (Auto) Garrett % (Auto) Eos % (Auto) Baso % (Auto) Neut # (Auto) Lymph # (Auto) Garrett # (Auto) Eos # (Auto) Baso # (Auto) Neutrophils % (Manual) (40-60) % Band Neutrophils % (0-10) % Lymphocytes % (Manual) (20-40) % Atypical Lymphs % % Monocytes % (Manual) (2-10) % Eosinophils % (Manual) (0.7-5.8) % Basophils % (Manual) (0.1-1.2) Manual Slide Review Platelet Estimate RBC Morph Comment PT (9.7-12.0) SECONDS INR APTT (22-31) SECONDS D-Dimer, Quantitative (0.19-0.50) mg/L Sodium (136-145) mEq/L Potassium (3.5-5.1) mEq/L Chloride (98-107) mEq/L Carbon Dioxide (21-32) mEq/L Anion Gap (5-15) BUN (7-18) mg/dL Creatinine (0.55-1.02) mg/dL Est Cr Clr Drug Dosing mL/min Estimated GFR (MDRD) (>60) mL/min BUN/Creatinine Ratio (14-18) Glucose (74-106) mg/dL Calcium (8.5-10.1) mg/dL Total Bilirubin (0.2-1.0) mg/dL AST (15-37) U/L ALT (14-59) U/L Alkaline Phosphatase (46-116) U/L Troponin I < 0.017 (0.00-0.056) ng/mL Total Protein (6.4-8.2) g/dl Albumin (3.4-5.0) g/dl Globulin gm/dL Albumin/Globulin Ratio (1-2) Result Diagrams: 07/14/19 18:42 07/14/19 18:42 Sepsis Event Note - Evaluation Sepsis Screening Result: No Definite Risk - Focused Exam Vital Signs: Vital Signs Temp Pulse Resp BP Pulse Ox 07/15/19 05:49 97.9 F 77 18 127/68 94 L 07/14/19 23:52 98.1 F 70 22 H 110/76 95 07/14/19 19:09 145/114 H 07/14/19 19:01 132/84 07/14/19 18:56 157/100 H Date Exam was Performed: 07/15/19 Time Exam was Performed: 11:31 - Problem List (1) Atypical chest pain SNOMED Code(s): 437015386 ICD Code: R07.89 - OTHER CHEST PAIN Status: Acute Priority: High Current Visit: Yes (2) Diaphoresis SNOMED Code(s): 59697926 ICD Code: R61 - GENERALIZED HYPERHIDROSIS Status: Resolved Priority: High Current Visit: Yes (3) Family history of heart disease SNOMED Code(s): 196919011 ICD Code: Z82.49 - FAMILY HX OF ISCHEM HEART DIS AND OTH DIS OF THE CIRC SYS Status: Chronic Priority: High Current Visit: Yes (4) Family history of vascular disease SNOMED Code(s): 551697967 ICD Code: Z82.49 - FAMILY HX OF ISCHEM HEART DIS AND OTH DIS OF THE CIRC SYS Status: Chronic Priority: High Current Visit: Yes (5) History of hypertension SNOMED Code(s): 113242295 ICD Code: Z86.79 - PERSONAL HISTORY OF OTHER DISEASES OF THE CIRCULATORY SYSTEM Status: Chronic Priority: Medium Current Visit: Yes (6) Tobacco abuse SNOMED Code(s): 885024441 ICD Code: Z72.0 - TOBACCO USE Status: Chronic Priority: High Current Visit: Yes Problem List Initiated/Reviewed/Updated: Yes Orders Last 24hrs: Active Orders 24 hr Category Date Time Status Patient Status [ADT] Routine ADT 07/14/19 23:02 Active OOB [Out of Bed] [RC] Q8HR Care 07/15/19 00:39 Active Oxygen Therapy Adult [Oxygen Therapy] [RC] ASDIRECTED Care 07/15/19 00:40 Active NPO After Midnight [Nothing per Oral After Midnight Diet 07/15/19 Breakfast Active Diet] [DIET] Nothing Per Oral Diet [DIET] Diet 07/15/19 Breakfast Active Chest 1V Frontal [CR] Stat Exams 07/14/19 18:52 Taken Echo 2D wo Cont [US] Routine Exams 07/15/19 08:00 Ordered Nicotine [Habitrol] Med 07/14/19 23:45 Active 21 mg TRDERM DAILY Remove Patch Med 07/15/19 09:00 Active 1 ea TRDERM DAILY traZODone Med 07/14/19 23:42 Active 50 mg PO ONETIME PRN Code Status [Resuscitation Status] Routine Resus Stat 07/15/19 03:20 Ordered EKG Stress [EK] Routine Ther 07/15/19 00:46 Ordered Medication Orders Miscellaneous Information (Remove Patch) 1 ea TRDERM DAILY TIA Nicotine (Habitrol) 21 mg TRDERM DAILY TAI Last Admin: 07/14/19 23:55 Dose: 21 mg Trazodone HCl (Trazodone) 50 mg PO ONETIME PRN PRN Reason: Sleep Last Admin: 07/14/19 23:55 Dose: 50 mg Assessment/Plan Comment:: I/P: Acute Chest pain -Reports Left arm pain while grocery shopping that increased and progressed to jaw and chest pain -Accompanied by diaphoresis and lightheadedness -Risk factors: Father with SC in 50's, Pack-a-day smoker, obesity, family hx/ o heart disease and vascular disease -No leukocytosis -Troponin x3 negative -12-lead EKG x2 shows sinus rhythm with HR in 70's, no ischemic changes -ASA 324mg and 0.4mg nitroglycerin x1 given in ED with resolution of symptoms -Echo obtained -Stress test in AM -Ideally ambulatory Cardiolite but patient unable to walk on treadmill at faster speeds 2/2 prior foot surgery 1 year ago -Will order Lexiscan instead -NPO at midnight -Troponin in AM - negative -Lipid panel - mildly low HDL Tobacco use disorder -Nicotine patch -Cessation counseling Chronic: HTN - per patient resolved and taken off medication after lifestyle changes. Obesity Plan: Admit to floor, observation status with telemetry Other orders as indicated above No need for further lab draws with exception of troponin and lipids as above Ambulate No home medications VTE: Ambulate Code status: Full code; PCP: None - Mortality Measure Prognosis:: Good
--- NOTE | 2019-07-15 07:07 | CR ---
Chest: Portable view of the chest was obtained. Comparison: Prior chest x-ray of 10/07/18. Heart size and mediastinum are normal. Nodule is identified within the right lateral costophrenic angle. This is not seen on previous exam but appears to be calcified and either is within the soft tissues or represents an interval granuloma or pleural plaque that is calcified. Lungs otherwise are clear. Lungs are slightly hyperinflated suggesting hyperinflation. Bony structures are grossly intact. Impression: 1. Lungs appear hyperinflated. Findings most likely represent emphysematous change. 2. Calcification within the lateral right costophrenic angle as noted above believed to be benign. 3. Nothing acute is otherwise seen. Diagnostic code #2 This report was dictated in [place] Standard Time
[2019-07-15] MEDS ORDERED: Nitroglycerin 0.4 MG Tab.SL SL PRN (07:16)
--- NOTE | 2019-07-15 07:49 | PCM.PRNOTE ---
- Free Text/Narrative Note: Date of service: 07/15/19 Procedure: Regadenoson (Lexiscan) stress test Ordering provider: Dr. Cheikh Pang/Lakhwinder Bishop PA-C Indication: Chest pain Baseline EKG: Sinus rhythm at 80 bpm. T-wave inversion in V1 - normal variant. Poor R-wave progression. The patient received Regadenoson (Lexiscan) 0.4 mg IV and a nuclear agent using standard protocol. The patient was seated for the procedure. Lexiscan test: Heart rate: 109 bpm; Blood pressure: 152/80 mm Hg; Oxygenation: 96%. EKG changes of ischemia during stress test or in recovery: None Arrhythmias: None Adverse effects of Lexiscan: Shortness of breath, stomach pains, and chest tightness all rapidly and spontaneously improving to resolving prior to completion of test. Test terminated due to: End of protocol Of note: Original order was for ambulatory Cardiolite stress test. After discussion with the patient she reports a foot surgery one year ago and does not feel she can safely ambulate at any increased speeds on the treadmill. Decision is then made to switch order to Lexiscan test. Impression: 1. Indeterminate Lexiscan stress test ECG for ischemia. Non-diagnostic per Lexiscan protocol. No definitive signs of ischemia seen. 2. Nuclear images pending and will be reported separately per Radiologist.
[2019-07-15] MEDS: Nicotine 21 MG/24 Hr Patch TRDERM SCH (08:49)
--- NOTE | 2019-07-15 09:58 | PCM.DCSUM1 ---
Discharge Summary - Hospital Course HPI Initial Comments: Homa Juarez is a 49 yo female who presented to ED on the evening of 2018 with chest pain. Patient reports she was out grocery shopping and began to have left arm pain which increased in severity. She also reported chest pain and jaw pain, along with becoming diaphoretic and lightheaded. Denies any prior cardiac history but does smoke a pack a day and has for the last 30 years. One point she reported the pain as "crushing". Ports pain was located in her left chest. After about 30 minutes she decided to come the emergency room. She was still complaining of some chest pain in the ER and was given nitroglycerin which relieved the symptoms. She noted some shortness of breath towards the end of her episode. Reports family history of a father who had an OR at age 50 and a younger sister who apparently had an aneurysm which resulted in a head bleed. The ED temp was 36.0 Celsius. Pulse 65. Respirations 22. Blood pressure 145/ 114. Pulse ox 100%. In the ED dual twelve-lead EKGs were performed throughout her stay both showing sinus rhythm with no ST segment abnormalities or other signs of ischemia, heart rate in the 70s. Labs were obtained and were grossly normal. WBC was 9.41. Hemoglobin 15.1. Hematocrit 43.9. She is normocytic. Platelets are good at 226,000. PT is 10.5. INR 0.95. APTT 27. D-dimer 0.22. Sodium 141. Potassium 3.9. Chloride 106. Carbon oxide 27. Anion gap 11.9. BUN is 18. Creatinine 0.9. GFR greater than 60. Glucose 98. Calcium 8.9. AST 17, ALT 35, alk phos slightly elevated at 130. Troponins x3 were negative at less than 0.017. Protein is 6.7. Albumin 3.8. 324 mg aspirin 1 mg Ativan and 0.4 nitro. She is also started on 25 mils an hour of LR. There is a history of hypertension but was taken off of medications after lifestyle changes and obesity. As noted prior she is a current every day smoker. She does not have a PCP. Diagnosis: Stroke: No - Discharge Data Discharge Date: 07/15/19 (Admit date: 07/14/19) Discharge Disposition: Home, Self-Care 01 Condition: Stable - Referral to Home Health Primary Care Physician: PCP None - Discharge Diagnosis/Problem(s) (1) Atypical chest pain SNOMED Code(s): 954250482 ICD Code: R07.89 - OTHER CHEST PAIN Status: Acute Priority: High Current Visit: Yes (2) Diaphoresis SNOMED Code(s): 54613355 ICD Code: R61 - GENERALIZED HYPERHIDROSIS Status: Resolved Priority: High Current Visit: Yes (3) Family history of heart disease SNOMED Code(s): 678474202 ICD Code: Z82.49 - FAMILY HX OF ISCHEM HEART DIS AND OTH DIS OF THE CIRC SYS Status: Chronic Priority: High Current Visit: Yes (4) Family history of vascular disease SNOMED Code(s): 355225994 ICD Code: Z82.49 - FAMILY HX OF ISCHEM HEART DIS AND OTH DIS OF THE CIRC SYS Status: Chronic Priority: High Current Visit: Yes (5) History of hypertension SNOMED Code(s): 850861836 ICD Code: Z86.79 - PERSONAL HISTORY OF OTHER DISEASES OF THE CIRCULATORY SYSTEM Status: Resolved Priority: Medium Current Visit: Yes (6) Tobacco abuse SNOMED Code(s): 958689765 ICD Code: Z72.0 - TOBACCO USE Status: Chronic Priority: High Current Visit: Yes - Patient Summary/Data Labs Pending at D/C: Echo pending Recommended Follow-up Testing/Procedures: Follow-up with PCP within 5-7 days of discharge. Needs to establish. Hospital Course: Homa was admitted to the floor observation status with telemetry for chest pain rule out. Echo was obtained today and is still pending with results expected tomorrow. Twelve-lead EKG showed no irregularities. she continues to complain of mild left-sided chest pain radiating into her neck and arm. Vital signs on the floor have been within normal limits. Troponins x4 were negative. D-dimer was negative. Lexiscan, both EKG and Cardiolite portion were negative. Lipid panel was obtained showing a low HDL but otherwise within normal limits. She is a smoker but not diabetic. She reports a history of hypertension but states that this has resolved with lifestyle changes. She was concerned because her blood pressure was high in the ED and we discussed how this is frequently an issue due to fear, pain, etc. Blood pressure on the floor here was within normal limits. Discussed how she can check her blood pressure twice a day and record this down, bring it with to her primary care provider, should she so desire. She does not have a primary care provider and we discussed how she needs to establish locally. She decided on [facility]. We will attempt to make an appointment with the next available within 5 to 7 days. She would like nicotine patches on discharge and these will be prescribed to her. She was advised that she will need to follow-up with her primary care provider as dosing changes will likely be required as she weans herself down. She was also given information about our local tobacco cessation programs. ASCVD risk calculator shows a 3.2%, low, 10-year ASCVD risk with a lifetime risk of 39%. Optimal ASCVD risk is 0.8%. Guidelines do not recommend starting a statin, blood pressure medication, or aspirin therapy for this patient. She will be discharged today. She was recommended to return the emergency room or follow-up with her primary care provider should symptoms return or worsen. - Patient Instructions Diet: Usual Diet as Tolerated Activity: As Tolerated Showering/Bathing: May Shower Notify Provider of: Fever, Increased Pain, Nausea and/or Vomiting Other/Special Instructions: Establish and follow-up with a primary care provider within 5-7 days of discharge. You were prescribed nicotine patches on discharge. We discussed the [facility], [facility], and our clinic tobacco cessation programs. You wer provided the contact information on these elsewhere in this document. No other new home medications. Take tylenol or ibuprofen as needed for pain. You were concerned about your blood pressure being high. It was good here on the floor. If you remain concerned you may obtain a blood pressure cuff from [facility], a local pharmacy, etc and record it twice a day in a journal. You may then bring that with to your primary care appointments. Should symptoms return or worsen contact your primary care provider or return to the Emergency Department. - Discharge Plan *PRESCRIPTION DRUG MONITORING PROGRAM REVIEWED*: No *COPY OF PRESCRIPTION DRUG MONITORING REPORT IN PATIENT JADYN: No Prescriptions/Med Rec: Nicotine [Habitrol] 21 mg TRDERM DAILY #20 patch Home Medications: Home Meds Nicotine [Habitrol] 21 mg TRDERM DAILY #20 patch 07/15/19 [Rx] Oxygen Therapy Mode: Room Air Patient Handouts: Steps to Quit Smoking, Chest Wall Pain, [id number] - Discharge Summary/Plan Comment DC Time >30 min.: Yes (45 mins ) - General Info Date of Service: 07/15/19 Admission Dx/Problem (Free Text: Admission Diagnosis/Problem Admission Diagnosis/Problem Chest pain Functional Status: Reports: Pain Controlled, Tolerating Diet, Ambulating, Urinating. Denies: New Symptoms - Review of Systems General: Reports: No Symptoms. Denies: Fever, Weakness, Fatigue, Malaise, Chills HEENT: Reports: No Symptoms. Denies: Headaches, Sore Throat Pulmonary: Reports: No Symptoms. Denies: Shortness of Breath, Pleuritic Chest Pain, Cough, Sputum, Wheezing Cardiovascular: Reports: Chest Pain (mild left sided ). Denies: Palpitations, Dyspnea on Exertion, Edema Gastrointestinal: Reports: No Symptoms. Denies: Abdominal Pain, Constipation, Diarrhea, Nausea, Vomiting Genitourinary: Reports: No Symptoms Musculoskeletal: Reports: Neck Pain (left sided ), Shoulder Pain (left) Skin: Reports: No Symptoms. Denies: Cyanosis Neurological: Reports: No Symptoms. Denies: Confusion, Difficulty Walking, Gait Disturbance Psychiatric: Reports: No Symptoms - Patient Data Vitals - Most Recent: Last Vital Signs Temp 97.5 F 07/15/19 08:50 Pulse 79 07/15/19 08:50 Resp 18 07/15/19 08:50 BP 115/70 07/15/19 08:50 Pulse Ox 97 07/15/19 08:50 Weight - Most Recent: 170 lb 9.6 oz I&O - Last 24 hours: Intake & Output 07/14/19 07/15/19 07/15/19 22:59 06:59 14:59 Intake Total 215 Balance 215 Lab Results - Last 24 hrs: Laboratory Results - last 24 hr 07/14/19 07/14/19 07/14/19 Range/Units 18:42 18:42 18:42 WBC 9.41 (3.98-10.04) K/mm3 RBC 4.83 (3.98-5.22) M/mm3 Hgb 15.1 (11.2-15.7) gm/dl Hct 43.9 (34.1-44.9) % MCV 90.9 (79.4-94.8) fl MCH 31.3 (25.6-32.2) pg MCHC 34.4 (32.2-35.5) g/dl RDW Std Deviation 42.4 (36.4-46.3) fL Plt Count 226 (182-369) K/mm3 MPV 10.4 (9.4-12.3) fl Neut % (Auto) Cancelled Lymph % (Auto) Cancelled [place] % (Auto) Cancelled Eos % (Auto) Cancelled Baso % (Auto) Cancelled Neut # (Auto) Cancelled Lymph # (Auto) Cancelled [place] # (Auto) Cancelled Eos # (Auto) Cancelled Baso # (Auto) Cancelled Neutrophils % (Manual) 65 H (40-60) % Band Neutrophils % 1 (0-10) % Lymphocytes % (Manual) 17 L (20-40) % Atypical Lymphs % 0 % Monocytes % (Manual) 10 (2-10) % Eosinophils % (Manual) 5 (0.7-5.8) % Basophils % (Manual) 2 H (0.1-1.2) Manual Slide Review Cancelled Platelet Estimate Adequate RBC Morph Comment Normal PT 10.4 (9.7-12.0) SECONDS INR 0.95 APTT 27 (22-31) SECONDS D-Dimer, Quantitative (0.19-0.50) mg/L Sodium 141 (136-145) mEq/L Potassium 3.9 (3.5-5.1) mEq/L Chloride 106 (98-107) mEq/L Carbon Dioxide 27 (21-32) mEq/L Anion Gap 11.9 (5-15) BUN 18 (7-18) mg/dL Creatinine 0.9 (0.55-1.02) mg/dL Est Cr Clr Drug Dosing 59.15 mL/min Estimated GFR (MDRD) > 60 (>60) mL/min BUN/Creatinine Ratio 20.0 H (14-18) Glucose 98 (74-106) mg/dL Calcium 8.9 (8.5-10.1) mg/dL Total Bilirubin 0.4 (0.2-1.0) mg/dL AST 17 (15-37) U/L ALT 35 (14-59) U/L Alkaline Phosphatase 130 H (46-116) U/L Troponin I < 0.017 (0.00-0.056) ng/mL Total Protein 6.7 (6.4-8.2) g/dl Albumin 3.8 (3.4-5.0) g/dl Globulin 2.9 gm/dL Albumin/Globulin Ratio 1.3 (1-2) Triglycerides (<150) mg/dL Cholesterol (<200) mg/dL LDL Cholesterol Direct (<100) mg/dL HDL Cholesterol (40-59) mg/dL 07/14/19 07/14/19 07/15/19 Range/Units 18:42 22:06 02:10 WBC (3.98-10.04) K/mm3 RBC (3.98-5.22) M/mm3 Hgb (11.2-15.7) gm/dl Hct (34.1-44.9) % MCV (79.4-94.8) fl MCH (25.6-32.2) pg MCHC (32.2-35.5) g/dl RDW Std Deviation (36.4-46.3) fL Plt Count (182-369) K/mm3 MPV (9.4-12.3) fl Neut % (Auto) Lymph % (Auto) [place] % (Auto) Eos % (Auto) Baso % (Auto) Neut # (Auto) Lymph # (Auto) [place] # (Auto) Eos # (Auto) Baso # (Auto) Neutrophils % (Manual) (40-60) % Band Neutrophils % (0-10) % Lymphocytes % (Manual) (20-40) % Atypical Lymphs % % Monocytes % (Manual) (2-10) % Eosinophils % (Manual) (0.7-5.8) % Basophils % (Manual) (0.1-1.2) Manual Slide Review Platelet Estimate RBC Morph Comment PT (9.7-12.0) SECONDS INR APTT (22-31) SECONDS D-Dimer, Quantitative 0.22 (0.19-0.50) mg/L Sodium (136-145) mEq/L Potassium (3.5-5.1) mEq/L Chloride (98-107) mEq/L Carbon Dioxide (21-32) mEq/L Anion Gap (5-15) BUN (7-18) mg/dL Creatinine (0.55-1.02) mg/dL Est Cr Clr Drug Dosing mL/min Estimated GFR (MDRD) (>60) mL/min BUN/Creatinine Ratio (14-18) Glucose (74-106) mg/dL Calcium (8.5-10.1) mg/dL Total Bilirubin (0.2-1.0) mg/dL AST (15-37) U/L ALT (14-59) U/L Alkaline Phosphatase (46-116) U/L Troponin I < 0.017 < 0.017 (0.00-0.056) ng/mL Total Protein (6.4-8.2) g/dl Albumin (3.4-5.0) g/dl Globulin gm/dL Albumin/Globulin Ratio (1-2) Triglycerides (<150) mg/dL Cholesterol (<200) mg/dL LDL Cholesterol Direct (<100) mg/dL HDL Cholesterol (40-59) mg/dL 07/15/19 07/15/19 Range/Units 04:41 05:12 WBC (3.98-10.04) K/mm3 RBC (3.98-5.22) M/mm3 Hgb (11.2-15.7) gm/dl Hct (34.1-44.9) % MCV (79.4-94.8) fl MCH (25.6-32.2) pg MCHC (32.2-35.5) g/dl RDW Std Deviation (36.4-46.3) fL Plt Count (182-369) K/mm3 MPV (9.4-12.3) fl Neut % (Auto) Lymph % (Auto) [place] % (Auto) Eos % (Auto) Baso % (Auto) Neut # (Auto) Lymph # (Auto) [place] # (Auto) Eos # (Auto) Baso # (Auto) Neutrophils % (Manual) (40-60) % Band Neutrophils % (0-10) % Lymphocytes % (Manual) (20-40) % Atypical Lymphs % % Monocytes % (Manual) (2-10) % Eosinophils % (Manual) (0.7-5.8) % Basophils % (Manual) (0.1-1.2) Manual Slide Review Platelet Estimate RBC Morph Comment PT (9.7-12.0) SECONDS INR APTT (22-31) SECONDS D-Dimer, Quantitative (0.19-0.50) mg/L Sodium (136-145) mEq/L Potassium (3.5-5.1) mEq/L Chloride (98-107) mEq/L Carbon Dioxide (21-32) mEq/L Anion Gap (5-15) BUN (7-18) mg/dL Creatinine (0.55-1.02) mg/dL Est Cr Clr Drug Dosing mL/min Estimated GFR (MDRD) (>60) mL/min BUN/Creatinine Ratio (14-18) Glucose (74-106) mg/dL Calcium (8.5-10.1) mg/dL Total Bilirubin (0.2-1.0) mg/dL AST (15-37) U/L ALT (14-59) U/L Alkaline Phosphatase (46-116) U/L Troponin I < 0.017 (0.00-0.056) ng/mL Total Protein (6.4-8.2) g/dl Albumin (3.4-5.0) g/dl Globulin gm/dL Albumin/Globulin Ratio (1-2) Triglycerides 144 (<150) mg/dL Cholesterol 144 (<200) mg/dL LDL Cholesterol Direct 83 (<100) mg/dL HDL Cholesterol 35.0 L (40-59) mg/dL Med Orders - Current: Current Medications Miscellaneous Information (Remove Patch) 1 ea TRDERM DAILY [facility] Last Admin: 07/15/19 08:50 Dose: 1 ea Nicotine (Habitrol) 21 mg TRDERM DAILY [facility] Last Admin: 07/15/19 08:49 Dose: 21 mg Trazodone HCl (Trazodone) 50 mg PO ONETIME PRN PRN Reason: Sleep Last Admin: 07/14/19 23:55 Dose: 50 mg Discontinued Medications Aspirin (Aspirin) 324 mg PO ONETIME ONE Stop: 07/14/19 18:50 Last Admin: 07/14/19 18:55 Dose: 324 mg Aspirin (Aspirin) Confirm Administered Dose 324 mg .ROUTE .STK-MED ONE Stop: 07/14/19 18:52 Last Admin: 07/14/19 19:10 Dose: Not Given Lactated Ringer's (Ringers, Lactated) 1,000 mls @ 25 mls/hr IV ASDIRECTED TIA Last Admin: 07/14/19 19:06 Dose: 25 mls/hr Lorazepam (Ativan) 1 mg IVPUSH ONETIME ONE Stop: 07/14/19 19:56 Last Admin: 07/14/19 20:00 Dose: 1 mg Nitroglycerin (Nitrostat) 0.4 mg SL Q5M PRN PRN Reason: Chest Pain Last Admin: 07/14/19 19:09 Dose: 0.4 mg Nitroglycerin (Nitrostat) Confirm Administered Dose 0.4 mg .ROUTE .STK-MED ONE Stop: 07/14/19 18:52 Last Admin: 07/14/19 19:10 Dose: Not Given Nitroglycerin (Nitrostat) 0.4 mg SL Q5M PRN PRN Reason: Chest Pain Regadenoson (Lexiscan) 0.4 mg IVPUSH ONETIME ONE Stop: 07/15/19 07:05 Last Admin: 07/15/19 07:11 Dose: 0.4 mg - Exam Quality Assessment: Reports: DVT Prophylaxis General: Reports: Alert, Oriented, Cooperative, No Acute Distress HEENT: Reports: Pupils Equal, Pupils Reactive, Mucous Membr. Moist/[place] Neck: Reports: Supple, Trachea Midline Lungs: Reports: Clear to Auscultation, Normal Respiratory Effort Cardiovascular: Reports: Regular Rate, Regular Rhythm GI/Abdominal Exam: Normal Bowel Sounds, Soft, Non-Tender, No Distention, No Abnormal Bruit (Female) Exam: Deferred Rectal (Female) Exam: Deferred Back Exam: Reports: Normal Inspection, Full Range of Motion Extremities: Normal Inspection, Normal Range of Motion, Non-Tender, No Pedal Edema, Normal Capillary Refill Skin: Reports: Warm, Dry, Intact Neurological: Reports: No New Focal Deficit Psy/Mental Status: Reports: Alert, Normal Affect, Normal Mood
--- NOTE | 2019-07-15 12:42 | NM ---
Cardiolite cardiac exam Technique: I have data stating the patient was stressed utilizing Lexiscan protocol. Stress dose of technetium 99m Cardiolite was 11.0 mCi. Rest dose is 30.4 mCi. SPECT imaging was obtained in 3 planes for both portions of the study. Study was also gated. Low-dose chest CT performed to allow for attenuation correction. Comparison: No prior cardiac imaging is available. Findings: Activity within the left ventricular myocardium is homogeneous between rest and stress study. No fixed or reversible type defects are seen. Ejection fraction is normal at 58%. Wall thickening and wall motion are normal. Impression: 1. No abnormality is identified on Cardiolite portion of cardiac stress test. Diagnostic code #1 This report was dictated in [place] Standard Time
== END 2019-07-15 14:33 | disposition home or self-care (01) ==
LOC: JD.ED 18:24 → JD.MS 23:08
PROVIDERS: ADMIT Family Medicine; ATTEND Family Medicine
DX: R07.89 Other chest pain (principal); R61 Generalized hyperhidrosis; I08.3 Combined rheumatic disorders of mitral, aortic and tricuspid valves; I10 Essential (primary) hypertension; F17.210 Nicotine dependence, cigarettes, uncomplicated; E66.9 Obesity, unspecified; Z82.49 Family history of ischemic heart disease and other diseases of the circulatory system; Z86.79 Personal history of other diseases of the circulatory system; Z88.0 Allergy status to penicillin; Z88.1 Allergy status to other antibiotic agents; Z88.2 Allergy status to sulfonamides; Z88.8 Allergy status to other drugs, medicaments and biological substances; Z91.048 Other nonmedicinal substance allergy status; Z68.31 Body mass index [BMI] 31.0-31.9, adult
CPT/HCPCS: 36415; 71045; 78452; 80053; 80061; 84484; 85007; 85027; 85379; 85610; 85730; 93005; 93017; 93306; 96361; 96374; 99285; A9270; A9500; G0378; J2060; J2785; J7120; 93010; 99220

== ENCOUNTER 2019-08-15 08:12 | Emergency (ER) | payer BC, MEDICAID, OTHER, SELFPAY ==
[2019-08-15] MEDS ORDERED: EPINEPHrine 1 MG/ML SDV IM ONE (08:58)
[2019-08-15] MEDS ORDERED: predniSONE 20 MG Tab PO ONE (08:58)
[2019-08-15] MEDS ORDERED: diphenhydrAMINE 50 MG Cap PO ONE (08:58)
--- NOTE | 2019-08-15 09:32 | EDM.PDOC ---
<Jenn Balbuena - Last Filed: 08/15/19 09:51> ED HPI GENERAL MEDICAL PROBLEM - General Chief Complaint: General Stated Complaint: RIGHT SIDE OF FACE PAIN.SWOLLEN SHOULDER BLADE Time Seen by Provider: 08/15/19 08:45 - History of Present Illness INITIAL COMMENTS - FREE TEXT/NARRATIVE: 49-year-old female presents with throat swelling and right sided face and shoulder pain that started yesterday afternoon. The patient states that the throat and face swelling started yesterday on both sides of her face. She took 50 mg of benedryl last night thinking it was an allergic reaction because the symptoms were similar to her other allergic reactions. This morning when she woke up, the right side of her face was rotary peel oven tender and swollen and her throat still felt tight. She is in no respiratory distress and is able to keep food and fluids down. She did notice an itchy rash on her hands at the onset, which has since subsided. She was placed on Omnicef mid July for a sinus infection. She completed the antibiotic on August 11 and notes that the mucus production decreased but she still feels sinus congestion. She was also placed on Metoprolol a month ago for hypertension. She does not recall any other new exposures in the last week, however, she did state that she felt "off " starting on Monday. Location: Reports: Head, Face, Neck Quality: Reports: Ache, Sharp Improves with: Reports: Medication (some improvement after benedryl ) Associated Symptoms: Reports: Rash (on hands), Shortness of Breath (feels it is more so due to anxiety from feeling like her throat is closing) - Related Data Allergies Allergy/AdvReac Type Severity Reaction Status Date / Time amoxicillin [From Augmentin] Allergy Hives Verified 08/15/19 08:32 ciprofloxacin [From Cipro] Allergy Hives Verified 08/15/19 08:32 clavulanic acid Allergy Hives Verified 08/15/19 08:32 [From Augmentin] nickel Allergy Hives Verified 08/15/19 08:32 sulfamethoxazole Allergy Swelling Verified 08/15/19 08:32 [From Bactrim] trimethoprim [From Bactrim] Allergy Swelling Verified 08/15/19 08:32 ondansetron [From Zofran] AdvReac Headache Verified 08/15/19 08:32 fish Allergy Airway Uncoded 08/15/19 08:32 Tightness Home Meds: Home Meds Metoprolol Succinate 25 mg PO DAILY 08/15/19 [History] ED ROS GENERAL - Review of Systems Review Of Systems: See Below Constitutional: Reports: Fatigue. Denies: Fever, Chills HEENT: Reports: Throat Swelling, Other (pain throughout right side of head and neck into the shoulder) Respiratory: Reports: No Symptoms Cardiovascular: Reports: No Symptoms GI/Abdominal: Reports: No Symptoms : Reports: No Symptoms Musculoskeletal: Reports: Shoulder Pain (right ) Skin: Reports: Dryness (hands), Rash (hands), Other (face mildly swollen, small abrasions on hands from itching her rash) Neurological: Reports: No Symptoms Psychiatric: Reports: Anxiety (some SOB due to feeling of throat closing) ED EXAM, GENERAL - Physical Exam Exam: See Below Exam Limited By: No Limitations General Appearance: Alert, WD/WN, Mild Distress Eye Exam: Bilateral Eye: EOMI, Periorbital Changes (mild swelling and erythema) , PERRL Ears: Normal External Exam, Normal Canal, Hearing Grossly Normal, Normal TMs Nose: Normal Inspection, Normal Mucosa, No Blood Throat/Mouth: Normal Inspection, Normal Lips, Normal Teeth, Normal Gums, Normal Voice, No Airway Compromise, Inflammation (mild oropharynx erythema and inflammation) Head: Atraumatic, Normocephalic Neck: Normal Inspection, Supple, Full Range of Motion, Tender Lateral (right sided). No: Lymphadenopathy (L), Lymphadenopathy (R) Respiratory/Chest: No Respiratory Distress, Lungs Clear, Normal Breath Sounds, No Accessory Muscle Use, Chest Non-Tender Cardiovascular: Normal Peripheral Pulses, Regular Rate, Rhythm, No Murmur Neurological: Alert, Oriented, Normal Cognition Psychiatric: Normal Affect, Normal Mood Skin Exam: Warm, Dry, Intact, No Rash, Erythema (mild facial erythema and edema ) Lymphatic: No Adenopathy Course - Vital Signs Last Recorded V/S: Last Vital Signs Temp 97.7 F 08/15/19 08:27 Pulse 65 08/15/19 08:27 Resp 18 08/15/19 08:27 BP 148/83 H 08/15/19 08:27 Pulse Ox 98 08/15/19 08:27 - Orders/Labs/Meds Meds: Medications Discontinued Medications Generic Name Dose Route Start Last Admin Trade Name Freq PRN Reason Stop Dose Admin Diphenhydramine HCl 50 mg 08/15/19 08:58 Benadryl PO 08/15/19 08:59 ONETIME ONE Epinephrine HCl 0.3 mg 08/15/19 08:58 08/15/19 09:15 Adrenalin IM 08/15/19 08:59 0.3 mg ONETIME ONE Administration Prednisone 40 mg 08/15/19 08:58 08/15/19 09:14 Prednisone PO 08/15/19 08:59 40 mg ONETIME ONE Administration Departure - Departure Disposition: Home, Self-Care 01 Clinical Impression: Allergic reaction caused by a drug - Discharge Information Instructions: Epinephrine Injection Referrals: Dianne Cottrell CRUSHER SCREEN REPAIRER [Primary Care Provider] - Forms: ED Department Discharge Additional Instructions: Benadryl 50 mg when you get home, than also start claritin 10 mg daily until sx resolve. Prednisone 40 mg every morning for the next 3 days, we have also gven 1 dose of epi while here n the ED. symptoms should gradually resolve over the next 1-3 days, follow up clinic as needed, return to ED a needed if symptoms worsening in any way. Sepsis Event Note - Focused Exam Vital Signs: Vital Signs Temp Pulse Resp BP Pulse Ox 08/15/19 08:27 97.7 F 65 18 148/83 H 98 Date Exam was Performed: 08/15/19 Time Exam was Performed: 09:51 <Trevor Dennis - Last Filed: 08/15/19 14:11> ED HPI GENERAL MEDICAL PROBLEM - General Source of Information: Reports: Patient, RN Notes Reviewed Right Shoulder Pain Score (Numeric/FACES): 10 Right Face/Facial Pain Score (Numeric/FACES): 10 Past Medical History HEENT History: Reports: Impaired Vision Other HEENT History: wears glasses Cardiovascular History: Reports: Hypertension Respiratory History: Reports: None Genitourinary History: Reports: None 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: Musculoskeletal History: Reports: Other (See Below) Other Musculoskeletal History: right ankle sprain Neurological History: Reports: None Psychiatric History: Reports: None Endocrine/Metabolic History: Reports: Obesity/BMI 30+ Hematologic History: Reports: None Immunologic History: Reports: None Oncologic (Cancer) History: Reports: None Dermatologic History: Reports: None - Past Surgical History Head Surgeries/Procedures: Reports: None HEENT Surgical History: Reports: None Cardiovascular Surgical History: Reports: None Respiratory Surgical History: Reports: None GI Surgical History: Reports: Appendectomy, Cholecystectomy, Colonoscopy Female Surgical History: Reports: Hysterectomy Endocrine Surgical History: Reports: None Neurological Surgical History: Reports: None Musculoskeletal Surgical History: Reports: Other (See Below) Other Musculoskeletal Surgeries/Procedures:: right ankle rebuilt Oncologic Surgical History: Reports: None Dermatological Surgical History: Reports: None - History Comment History Comment: Apparent history of hypertension. Patient has not had any medical attention nor has she taken any medication for at least a year. Social & Family History - Family History Family Medical History: Noncontributory Other Cardiac Family History: As noted above somewhat of a family history of heart disease. Father had first WA at age 50 and in his 70s. Heart disease cause of . Other family members including grandparents with heart disease but as noted all managed to live to their 70s and 80s. Patient's younger sister did have a vascular issue and that she had an aneurysm producing a brain bleed. - Caffeine Use Caffeine Use: Reports: Coffee, Soda Other Caffeine Use: one cup of coffee daily and 2-3 cups soda every day - Living Situation & Occupation Living situation: Reports: Single Occupation: Employed Course - Re-Assessments/Exams Free Text/Narrative Re-Assessment/Exam: 08/15/19 14:08 Initial hx and exam was done by JADE Sotomayor student. I agree with her hx and exam as documented. I have also interviewed and examined patient. We did treat with prednisone 40 mg by mouth, appendectomy 0.3 ml IM 1 1000. Benadryl 50 was ordered but patient asked if she could wait and take that once he got home. She did began to feel much better after these meds have been given. Her facial flushing and swelling did improve. Discharge instructions as documented. Departure - Departure Time of Disposition: 09:28 Condition: Fair Sepsis Event Note - Evaluation Sepsis Screening Result: No Definite Risk - Focused Exam Date Exam was Performed: 08/15/19 Time Exam was Performed: 14:08
== END 2019-08-15 10:00 | disposition home or self-care (01) ==
LOC: JD.ED 08:12
DX: R22.0 Localized swelling, mass and lump, head (principal); L27.0 Generalized skin eruption due to drugs and medicaments taken internally; T50.905A Adverse effect of unspecified drugs, medicaments and biological substances, initial encounter; I10 Essential (primary) hypertension; E66.9 Obesity, unspecified; Z68.30 Body mass index [BMI] 30.0-30.9, adult; Z88.0 Allergy status to penicillin; Z88.1 Allergy status to other antibiotic agents; Z88.8 Allergy status to other drugs, medicaments and biological substances; Z91.013 Allergy to seafood; Z91.048 Other nonmedicinal substance allergy status; Z79.899 Other long term (current) drug therapy
CPT/HCPCS: 96372; 99283; A9270; J0171

== ENCOUNTER 2020-12-03 10:44 | Emergency (ER) | payer MEDICAID ==
--- NOTE | 2020-12-03 12:44 | EDM.PDOC ---
ED HPI GENERAL MEDICAL PROBLEM - General Chief Complaint: Lower Extremity Injury/Pain Stated Complaint: RT KNEE PAIN Time Seen by Provider: 12/03/20 11:16 Source of Information: Reports: Patient History Limitations: Reports: No Limitations - History of Present Illness INITIAL COMMENTS - FREE TEXT/NARRATIVE: 50-year-old female presents to the emergency department with complaints of right knee pain. She states this has been going on for the past couple of weeks however it is worsening. She states she noticed the pain when she was stepping out of a bobcat skid steer car loader. She states she stepped down the steps and then developed the pain. She denies any twisting or jumping that would have triggered the pain. She denies any popping or cracking noted when she was catracho ing down. She states that she has tried Tylenol, ibuprofen, ice and heat and none of this has seemed to help. Pain is in the left medial aspect of her right knee. She has no prior history of surgery or trauma noted to her right knee. She states she does have a appointment with her primary care provider, Julianna Hendrix, on Monday however she was told that if the pain got worse to come to the emergency department. She also states that her daughter is getting in 2 days and she is worried she will not be able to ambulate or tolerate the pain throughout the wedding. Onset: Gradual Location: Reports: Lower Extremity, Right Right Knee Pain Score (Numeric/FACES): 8 - Related Data Allergies Allergy/AdvReac Type Severity Reaction Status Date / Time cefdinir [From Omnicef] Allergy Severe Swelling Verified 12/03/20 11:19 ciprofloxacin [From Cipro] Allergy Severe Hives Verified 12/03/20 11:19 clavulanic acid Allergy Severe Hives Verified 12/03/20 11:19 [From Augmentin] nickel Allergy Severe Hives Verified 12/03/20 11:19 sulfamethoxazole Allergy Severe Swelling Verified 12/03/20 11:19 [From Bactrim] trimethoprim [From Bactrim] Allergy Severe Swelling Verified 12/03/20 11:19 ondansetron [From Zofran] AdvReac Severe Headache Verified 12/03/20 11:19 fish Allergy Severe Airway Uncoded 12/03/20 11:19 Tightness Home Meds: Home Meds Cyclobenzaprine [Flexeril] 10 mg PO BEDTIME 12/03/20 [History] Diclofenac Sodium [Voltaren] 75 mg PO BIDMEALS #16 tab.cr 12/03/20 [Rx] Gabapentin [Neurontin] 300 mg PO BEDTIME 12/03/20 [History] Metoprolol Succinate [Toprol Xl] 50 mg PO BEDTIME 12/03/20 [History] Omeprazole Magnesium [Prilosec Otc] 20 mg PO BEDTIME 12/03/20 [History] oxyCODONE HCl/Acetaminophen [Percocet 5-325 mg Tablet] 1 each PO Q6H PRN #10 tablet 12/03/20 [Rx] predniSONE [Prednisone] 20 mg PO ASDIRECTED #15 tablet 12/03/20 [Rx] Past Medical History HEENT History: Reports: Impaired Vision Other HEENT History: wears glasses Cardiovascular History: Reports: Hypertension Respiratory History: Reports: None Genitourinary History: Reports: None 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: Musculoskeletal History: Reports: Other (See Below) Other Musculoskeletal History: right ankle sprain Neurological History: Reports: None Psychiatric History: Reports: None Endocrine/Metabolic History: Reports: Obesity/BMI 30+ Hematologic History: Reports: None Immunologic History: Reports: None Oncologic (Cancer) History: Reports: None Dermatologic History: Reports: None - Past Surgical History Head Surgeries/Procedures: Reports: None HEENT Surgical History: Reports: None Cardiovascular Surgical History: Reports: None Respiratory Surgical History: Reports: None GI Surgical History: Reports: Appendectomy, Cholecystectomy, Colonoscopy Female Surgical History: Reports: Hysterectomy Endocrine Surgical History: Reports: None Neurological Surgical History: Reports: None Musculoskeletal Surgical History: Reports: Other (See Below) Other Musculoskeletal Surgeries/Procedures:: right ankle rebuilt Oncologic Surgical History: Reports: None Dermatological Surgical History: Reports: None - History Comment History Comment: Apparent history of hypertension. Patient has not had any medical attention nor has she taken any medication for at least a year. Social & Family History - Family History Family Medical History: No Pertinent Family History Other Cardiac Family History: As noted above somewhat of a family history of heart disease. Father had first WA at age 50 and in his 70s. Heart disease cause of . Other family members including grandparents with heart disease but as noted all managed to live to their 70s and 80s. Patient's younger sister did have a vascular issue and that she had an aneurysm producing a brain bleed. - Caffeine Use Caffeine Use: Reports: Coffee, Soda Other Caffeine Use: one cup of coffee daily and 2-3 cups soda every day - Living Situation & Occupation Living situation: Reports: Single Occupation: Employed Review of Systems - Review of Systems Review Of Systems: Comprehensive ROS is negative, except as noted in HPI. ED EXAM, GENERAL - Physical Exam Exam: See Below Exam Limited By: No Limitations General Appearance: Alert, WD/WN, No Apparent Distress Ears: Normal External Exam, Hearing Grossly Normal Nose: Normal Inspection Throat/Mouth: Normal Inspection, Normal Lips, Normal Voice, No Airway Compromise Head: Atraumatic Neck: Normal Inspection Respiratory/Chest: No Respiratory Distress, No Accessory Muscle Use Cardiovascular: Normal Peripheral Pulses, Regular Rate, Rhythm, No Edema Peripheral Pulses: 2+: Radial (L), Radial (R), Dorsalis Pedis (L), Dorsalis Pedis (R) GI/Abdominal: Normal Bowel Sounds, No Distention (Female) Exam: Deferred Rectal (Female) Exam: Deferred Back Exam: Normal Inspection Extremities: Normal Inspection, No Pedal Edema Neurological: Alert, Oriented, Normal Cognition Psychiatric: Normal Affect, Normal Mood Skin Exam: Warm, Dry, Intact, Normal Color, No Rash Lymphatic: No Adenopathy Course - Vital Signs Text/Narrative:: Patient presents with right medial knee pain. This started about 2 weeks ago and is progressively getting worse. She has tried ice, heat, Tylenol and ib uprofen and she states nothing seems to help. She states she is able to bear weight however it does cause her a significant amount of discomfort to ambulate. Pain is noted in the area of the MCL with palpation. Valgus and varus stress tests were performed. No instability was noted however patient does have increased pain during valgus stress test. I have ordered an x-ray of the right knee. Last Recorded V/S: Last Vital Signs Temp Pulse 83 12/03/20 11:11 Resp 18 12/03/20 11:11 BP 157/97 H 12/03/20 11:11 Pulse Ox 98 12/03/20 11:11 - Re-Assessments/Exams Free Text/Narrative Re-Assessment/Exam: 12/03/20 14:00 4 view x-ray of the right knee radiologist impression: 1. Mild medial joint space narrowing. 2. Chondrocalcinosis within the menisci. Patient will be discharged to home on Voltaren and prednisone. She already states that she takes Prilosec daily. I will also send her home with a few Percocet tabs to get her past the next couple of days until the Voltaren and prednisone kick in. She has a appointment scheduled with her primary care provider on Monday. Departure - Departure Time of Disposition: 13:56 Disposition: Home, Self-Care 01 Condition: Good Clinical Impression: Chondrocalcinosis - Discharge Information Prescriptions: oxyCODONE HCl/Acetaminophen [Percocet 5-325 mg Tablet] 1 each PO Q6H PRN #10 tablet PRN Reason: Pain (Moderate 4-6) predniSONE [Prednisone] 20 mg PO ASDIRECTED #15 tablet Diclofenac Sodium [Voltaren] 75 mg PO BIDMEALS #16 tab.cr Instructions: Pain Medicine Instructions, [id number] Referrals: Dianne Cottrell, SANE RN [Primary Care Provider] - Forms: ED Department Discharge Additional Instructions: You were seen in the emergency department today with complaints of pain to your right knee for the past 2 weeks. An x-ray was completed and this shows that you do have chondrocalcinosis within the menisci of your right knee. Treatment for this is anti-inflammatories and steroids. I have sent prescription for Voltaren a prescription strength anti-inflammatory. You will take this medicine twice daily with breakfast and supper. I have also sent a prescription for prednisone 20 mg. You will take that twice daily for the next 5 days and then once daily for 5 days thereafter. Be sure to take your Prilosec that you are already taking as these 2 medications can cause a stomach ulcer. I have also sent you a prescription for Percocet pain pills. You may take 1 tab every 6 hours as needed for more severe pain. You will only likely need to take these for the next couple of days until the anti-inflammatories and steroids kick in. Recommend you keep your appointment with Julianna Hendrix on Monday. Sepsis Event Note (ED) - Evaluation Sepsis Screening Result: No Definite Risk - Focused Exam Vital Signs: Vital Signs Pulse Resp BP Pulse Ox 12/03/20 11:11 83 18 157/97 H 98
--- NOTE | 2020-12-03 13:20 | CR ---
Right knee: 4 views of the right knee were obtained. Comparison: No prior knee study is available. Mild narrowing is seen within the medial joint compartment. Chondrocalcinosis is noted within the medial and lateral knee. No discrete joint effusion is seen. No acute fracture or other abnormality is appreciated. Impression: 1. Mild medial joint space narrowing. 2. Chondrocalcinosis within the menisci. Diagnostic code #2
== END 2020-12-03 14:05 | disposition home or self-care (01) ==
LOC: JD.ED 10:44
DX: M11.261 Other chondrocalcinosis, right knee (principal); E66.9 Obesity, unspecified; I10 Essential (primary) hypertension; Z91.048 Other nonmedicinal substance allergy status; Z88.1 Allergy status to other antibiotic agents; Z88.0 Allergy status to penicillin; Z91.013 Allergy to seafood; Z79.899 Other long term (current) drug therapy; Z68.36 Body mass index [BMI] 36.0-36.9, adult
CPT/HCPCS: 73564-26-RT; 73564-RT; 99283; 99283-25

== ENCOUNTER 2020-12-27 16:30 | Emergency (ER) | payer MEDICAID ==
[2020-12-27] MEDS ORDERED: Sodium Chloride 0.9% 1,000 ML IV ONE (16:47)
[2020-12-27] MEDS ORDERED: Sodium Chloride 0.9% 10 ML Syringe FLUSH PRN (16:47)
[2020-12-27] MEDS ORDERED: diphenhydrAMINE 50 MG/ML SDV IVPUSH ONE (16:48)
[2020-12-27] MEDS ORDERED: Prochlorperazine 10 MG/2 ML SDV IVPUSH ONE (16:48)
[2020-12-27] MEDS ORDERED: Ketorolac 30 MG/ML SDV IVPUSH ONE (16:48)
--- NOTE | 2020-12-27 18:09 | EDM.PDOC ---
ED HPI GENERAL MEDICAL PROBLEM - General Chief Complaint: Headache Stated Complaint: HEADACHE/VOMITING Time Seen by Provider: 12/27/20 16:35 Source of Information: Reports: Patient History Limitations: Reports: No Limitations - History of Present Illness INITIAL COMMENTS - FREE TEXT/NARRATIVE: The patient presents with a headache, nausea and vomiting. She woke up with a headache this morning and then developed nausea and vomiting. She has a history of migraines. This one feels more severe and different. She cannot keep any medicine down and nothing is working. She has no numbness or weakness. She has no fever, chills, cough, chest pain, shortness of breath or abdominal pain. Onset: Gradual Duration: Hour(s): Location: Reports: Head Quality: Reports: Sharp Severity: Severe Improves with: Reports: None Worsens with: Reports: None Associated Symptoms: Reports: Headaches, Nausea/Vomiting. Denies: Chest Pain, Cough, Fever/Chills, Shortness of Breath Headache Pain Score (Numeric/FACES): 10 - Related Data Allergies Allergy/AdvReac Type Severity Reaction Status Date / Time cefdinir [From Omnicef] Allergy Severe Swelling Verified 12/27/20 16:43 sulfamethoxazole Allergy Severe Swelling Verified 12/27/20 16:43 [From Bactrim] trimethoprim [From Bactrim] Allergy Severe Swelling Verified 12/27/20 16:43 ciprofloxacin [From Cipro] Allergy Intermediate Hives Verified 12/27/20 16:43 clavulanic acid Allergy Intermediate Hives Verified 12/27/20 16:43 [From Augmentin] nickel Allergy Intermediate Hives Verified 12/27/20 16:43 ondansetron [From Zofran] AdvReac Mild Headache Verified 12/27/20 16:43 fish Allergy Severe Airway Uncoded 12/27/20 16:43 Tightness Home Meds: Home Meds Clindamycin HCl 450 mg PO TID #90 capsule 12/27/20 [Rx] Cyclobenzaprine [Flexeril] 10 mg PO BEDTIME 12/27/20 [History] Gabapentin [Neurontin] 300 mg PO BEDTIME 12/27/20 [History] Ibuprofen [Motrin] 800 mg PO ASDIRECTED PRN 12/27/20 [History] Loratadine/Pseudoephedrine [Claritin-D 12 Hour] 1 tab PO ASDIRECTED PRN 12/27/20 [History] Metoprolol Succinate [Toprol Xl] 100 mg PO BEDTIME 12/27/20 [History] Omeprazole Magnesium [Prilosec Otc] 20 mg PO DAILY 12/27/20 [History] SUMAtriptan [Imitrex] 50 mg PO Q2H PRN #10 tablet 12/27/20 [Rx] Past Medical History HEENT History: Reports: Impaired Vision Other HEENT History: wears glasses Cardiovascular History: Reports: Hypertension Respiratory History: Reports: None Genitourinary History: Reports: None 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: Musculoskeletal History: Reports: Other (See Below) Other Musculoskeletal History: right ankle sprain Neurological History: Reports: Migraines Psychiatric History: Reports: Anxiety Endocrine/Metabolic History: Reports: Obesity/BMI 30+ Hematologic History: Reports: None Immunologic History: Reports: None Oncologic (Cancer) History: Reports: None Dermatologic History: Reports: None - Infectious Disease History Infectious Disease History: Reports: Chicken Pox, Mumps - Past Surgical History Respiratory Surgical History: Reports: None GI Surgical History: Reports: Appendectomy, Cholecystectomy, Colonoscopy Female Surgical History: Reports: Hysterectomy Neurological Surgical History: Reports: None Musculoskeletal Surgical History: Reports: Other (See Below) Other Musculoskeletal Surgeries/Procedures:: right ankle rebuilt Oncologic Surgical History: Reports: None - History Comment History Comment: Apparent history of hypertension. Patient has not had any medical attention nor has she taken any medication for at least a year. Social & Family History - Family History Family Medical History: No Pertinent Family History Other Cardiac Family History: As noted above somewhat of a family history of heart disease. Father had first MS at age 50 and in his 70s. Heart disease cause of . Other family members including grandparents with heart disease but as noted all managed to live to their 70s and 80s. Patient's younger sister did have a vascular issue and that she had an aneurysm producing a brain bleed. - Tobacco Use Tobacco Use Status *Q: Current Every Day Tobacco User Years of Tobacco use: 35 Packs/Tins Daily: 1 - Caffeine Use Caffeine Use: Reports: Coffee, Soda Other Caffeine Use: one cup of coffee daily and 2-3 cups soda every day - Recreational Drug Use Recreational Drug Use: No - Living Situation & Occupation Living situation: Reports: Single Occupation: Employed ED ROS GENERAL - Review of Systems Review Of Systems: See Below Constitutional: Reports: No Symptoms HEENT: Reports: No Symptoms Respiratory: Reports: No Symptoms Cardiovascular: Reports: No Symptoms Endocrine: Reports: No Symptoms GI/Abdominal: Reports: Nausea, Vomiting. Denies: Abdominal Pain : Reports: No Symptoms Musculoskeletal: Reports: No Symptoms Skin: Reports: No Symptoms Neurological: Reports: Headache - Physical Exam Exam: See Below Exam Limited By: No Limitations General Appearance: Alert, No Apparent Distress Ears: Normal External Exam Nose: Normal Inspection Head Exam: Atraumatic, Normocephalic Neck: Normal Inspection, Supple, Non-Tender Respiratory/Chest: No Respiratory Distress, Lungs Clear, Normal Breath Sounds Cardiovascular: Regular Rate, Rhythm, No Edema, No Murmur GI/Abdominal: Soft, Non-Tender, No Organomegaly, No Mass Neuro Exam (Abbreviated): Alert, Oriented, No Motor/Sensory Deficits Course - Vital Signs Last Recorded V/S: Last Vital Signs Temp 98.4 F 12/27/20 16:36 Pulse 82 12/27/20 16:36 Resp 14 12/27/20 16:36 BP 153/83 H 12/27/20 16:36 Pulse Ox 97 12/27/20 16:36 - Orders/Labs/Meds Orders: Active Orders 24 hr Category Date Time Status Peripheral IV Care [RC] . DIRECTED Care 12/27/20 16:47 Active Head wo Cont [CT] Stat Exams 12/27/20 16:49 Taken Sodium Chloride 0.9% [Saline Flush] Med 12/27/20 16:47 Active 10 ml FLUSH ASDIRECTED PRN Peripheral IV Insertion Adult [OM.PC] Routine Oth 12/27/20 16:47 Ordered Medication Orders Sodium Chloride (Sodium Chloride 0.9% 10 Ml Syringe) 10 ml FLUSH ASDIRECTED PRN PRN Reason: Keep Vein Open Last Admin: 12/27/20 17:07 Dose: 10 ml Documented by: JAVIER Meds: Medications Generic Name Dose Route Start Last Admin Trade Name Freq PRN Reason Stop Dose Admin Sodium Chloride 10 ml 12/27/20 16:47 12/27/20 17:07 Sodium Chloride 0.9% 10 Ml Syringe FLUSH 10 ml ASDIRECTED PRN Administration Keep Vein Open Discontinued Medications Generic Name Dose Route Start Last Admin Trade Name Freq PRN Reason Stop Dose Admin Diphenhydramine HCl 50 mg 12/27/20 16:48 12/27/20 17:02 Diphenhydramine 50 Mg/Ml Sdv IVPUSH 12/27/20 16:49 50 mg ONETIME ONE Administration Sodium Chloride 1,000 mls @ 1,000 mls/hr 12/27/20 16:47 12/27/20 17:06 Normal Saline IV 12/27/20 17:46 1,000 mls/hr ONETIME ONE Administration Ketorolac Tromethamine 30 mg 12/27/20 16:48 12/27/20 17:03 Ketorolac 30 Mg/Ml Sdv IVPUSH 12/27/20 16:49 30 mg ONETIME ONE Administration Prochlorperazine Edisylate 10 mg 12/27/20 16:48 12/27/20 17:05 Prochlorperazine 10 Mg/2 Ml Sdv IVPUSH 12/27/20 16:49 10 mg ONETIME ONE Administration - Re-Assessments/Exams Free Text/Narrative Re-Assessment/Exam: 12/27/20 18:09 I ordered an IV NS 1L bolus, compazine 10mg IV, benadryl 50mg IV, toradol 30mg IV, and a CT of her head. 12/27/20 18:[address] looks good. She feels better. She showed me two areas on her left leg where she had an abrasion and a tick bite. They are not healing. It does not look like lymes disease. I will get her on some keflex and imitrex for further migraine management. Departure - Departure Time of Disposition: 18:20 Disposition: Home, Self-Care 01 Condition: Good Clinical Impression: Migraine Cellulitis Qualifiers: Site of cellulitis: extremity Site of cellulitis of extremity: lower extremity Laterality: left Qualified Code(s): L03.116 - Cellulitis of left lower limb - Discharge Information *PRESCRIPTION DRUG MONITORING PROGRAM REVIEWED*: Not Applicable *COPY OF PRESCRIPTION DRUG MONITORING REPORT IN PATIENT JADYN: Not Applicable Prescriptions: Clindamycin HCl 450 mg PO TID #90 capsule SUMAtriptan [Imitrex] 50 mg PO Q2H PRN #10 tablet PRN Reason: Headache Referrals: Dianne Cottrell SCRATCH FINISHER [Primary Care Provider] - 1 Week Forms: ED Department Discharge Additional Instructions: Go home and rest. Take the clindamycin starting tomorrow. Take the imitrex as needed. Please return if you are worse. Sepsis Event Note (ED) - Evaluation Sepsis Screening Result: No Definite Risk - Focused Exam Vital Signs: Vital Signs Temp Pulse Resp BP Pulse Ox 12/27/20 16:36 98.4 F 82 14 153/83 H 97 - My Orders Last 24 Hours: My Active Orders 12/27/20 16:47 Peripheral IV Care [RC] . DIRECTED Sodium Chloride 0.9% [Saline Flush] 10 ml FLUSH ASDIRECTED PRN Peripheral IV Insertion Adult [OM.PC] Routine 12/27/20 16:49 Head wo Cont [CT] Stat - Assessment/Plan Last 24 Hours: My Active Orders 12/27/20 16:47 Peripheral IV Care [RC] . DIRECTED Sodium Chloride 0.9% [Saline Flush] 10 ml FLUSH ASDIRECTED PRN Peripheral IV Insertion Adult [OM.PC] Routine 12/27/20 16:49 Head wo Cont [CT] Stat
--- NOTE | 2020-12-28 07:25 | CT ---
Head CT Technique: Multiple axial sections through the brain were obtained. Intravenous contrast was not utilized. Reconstructed coronal and sagittal images were obtained. Comparison: No prior intracranial imaging is available. Findings: Ventricles along with basal cisterns and sulci over the convexities are within normal limits for the patient's age. No abnormal parenchymal densities are seen. No evidence of intracranial hemorrhage. No midline shift or mass-effect is seen. There is a minimal portion of the cerebellar tonsils not included on the study. Bone window settings were reviewed. The visualized paranasal sinuses and mastoid sinuses show nothing acute. No acute calvarial abnormality is appreciated. Impression: 1. Minimal portion of the inferior cerebellar tonsils not included on the exam. 2. Nothing acute is otherwise seen on noncontrast head CT exam. Diagnostic code #2 I agree with preliminary report from [facility], finalized on 12/27/20, 7:12 PM CDT, code 1
== END 2020-12-27 18:36 | disposition home or self-care (01) ==
LOC: JD.ED 16:30
DX: G43.909 Migraine, unspecified, not intractable, without status migrainosus (principal); L03.116 Cellulitis of left lower limb; I10 Essential (primary) hypertension; E66.9 Obesity, unspecified; Z68.36 Body mass index [BMI] 36.0-36.9, adult; Z88.1 Allergy status to other antibiotic agents; Z88.2 Allergy status to sulfonamides; Z91.018 Allergy to other foods; Z88.8 Allergy status to other drugs, medicaments and biological substances; Z72.0 Tobacco use
CPT/HCPCS: 70450; 96374; 96375; 99284; J0780; J1200; J1885; J7030

== ENCOUNTER 2021-02-12 00:40 | Emergency (ER) | payer MEDICAID ==
[2021-02-12] MEDS ORDERED: Adenosine 6 MG/2 ML SDV ONE (00:47)
--- NOTE | 2021-02-12 00:47 | EDM.PDOC ---
ED HPI GENERAL MEDICAL PROBLEM - General Chief Complaint: Chest Pain Stated Complaint: RAPID HEART BEAT Time Seen by Provider: 02/12/21 00:47 - History of Present Illness INITIAL COMMENTS - FREE TEXT/NARRATIVE: 50-year-old female presents emergency room with chest discomfort palpitations and a rapid heart rate. Patient awoke right after midnight with chest pressure and the sensation that her pulse was going very fast she checked her blood pressure at home and her pulse read in the 170s. The patient has not had problems like this in the past. She has been evaluated for chest pain in the past but this was a negative work- up. Patient has not had any activities that would have precipitated this. She is mildly short of breath with this episode. She is not aware of any fevers or chills. - Related Data Allergies Allergy/AdvReac Type Severity Reaction Status Date / Time cefdinir [From Omnicef] Allergy Severe Swelling Verified 02/12/21 00:50 sulfamethoxazole Allergy Severe Swelling Verified 02/12/21 00:50 [From Bactrim] trimethoprim [From Bactrim] Allergy Severe Swelling Verified 02/12/21 00:50 ciprofloxacin [From Cipro] Allergy Intermediate Hives Verified 02/12/21 00:50 clavulanic acid Allergy Intermediate Hives Verified 02/12/21 00:50 [From Augmentin] nickel Allergy Intermediate Hives Verified 02/12/21 00:50 ondansetron [From Zofran] AdvReac Mild Headache Verified 02/12/21 00:50 fish Allergy Severe Airway Uncoded 02/12/21 00:50 Tightness Home Meds: Home Meds Clindamycin HCl 450 mg PO TID #90 capsule 12/27/20 [Rx] Cyclobenzaprine [Flexeril] 10 mg PO BEDTIME 12/27/20 [History] Gabapentin [Neurontin] 300 mg PO BEDTIME 12/27/20 [History] Ibuprofen [Motrin] 800 mg PO ASDIRECTED PRN 12/27/20 [History] Loratadine/Pseudoephedrine [Claritin-D 12 Hour] 1 tab PO ASDIRECTED PRN 12/27/20 [History] Metoprolol Succinate [Toprol Xl] 100 mg PO BEDTIME 12/27/20 [History] Omeprazole Magnesium [Prilosec Otc] 20 mg PO DAILY 12/27/20 [History] SUMAtriptan [Imitrex] 50 mg PO Q2H PRN #10 tablet 12/27/20 [Rx] Past Medical History HEENT History: Reports: Impaired Vision Other HEENT History: wears glasses Cardiovascular History: Reports: Hypertension Respiratory History: Reports: None Genitourinary History: Reports: None 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: Musculoskeletal History: Reports: Other (See Below) Other Musculoskeletal History: right ankle sprain Neurological History: Reports: Migraines Psychiatric History: Reports: Anxiety Endocrine/Metabolic History: Reports: Obesity/BMI 30+ Hematologic History: Reports: None Immunologic History: Reports: None Oncologic (Cancer) History: Reports: None Dermatologic History: Reports: None - Infectious Disease History Infectious Disease History: Reports: Chicken Pox, Mumps - Past Surgical History Respiratory Surgical History: Reports: None GI Surgical History: Reports: Appendectomy, Cholecystectomy, Colonoscopy Female Surgical History: Reports: Hysterectomy Neurological Surgical History: Reports: None Musculoskeletal Surgical History: Reports: Other (See Below) Other Musculoskeletal Surgeries/Procedures:: right ankle rebuilt Oncologic Surgical History: Reports: None - History Comment History Comment: Apparent history of hypertension. Patient has not had any medical attention nor has she taken any medication for at least a year. Social & Family History - Family History Family Medical History: No Pertinent Family History Other Cardiac Family History: As noted above somewhat of a family history of heart disease. Father had first IN at age 50 and in his 70s. Heart disease cause of . Other family members including grandparents with heart disease but as noted all managed to live to their 70s and 80s. Patient's younger sister did have a vascular issue and that she had an aneurysm producing a brain bleed. - Caffeine Use Caffeine Use: Reports: Coffee, Soda Other Caffeine Use: one cup of coffee daily and 2-3 cups soda every day - Living Situation & Occupation Living situation: Reports: Single Occupation: Employed ED ROS GENERAL - Review of Systems Review Of Systems: See Below Constitutional: Reports: No Symptoms HEENT: Reports: No Symptoms Respiratory: Reports: Other (Mild with the palpitations) Cardiovascular: Reports: Chest Pain, Palpitations GI/Abdominal: Reports: No Symptoms : Reports: No Symptoms Musculoskeletal: Reports: No Symptoms Neurological: Reports: No Symptoms ED EXAM, GENERAL - Physical Exam Exam: See Below Exam Limited By: No Limitations General Appearance: Alert, Other (Patient was mildly anxious when her heart rate was quite elevated this improved after correction of the tachycardia) Head: Atraumatic, Normocephalic Neck: Normal Inspection, Supple, Non-Tender, Full Range of Motion Respiratory/Chest: No Respiratory Distress, Lungs Clear, Normal Breath Sounds Cardiovascular: No Edema, No Murmur, Tachycardia, Other (Normal cardiac exam after correction of the tachycardia) GI/Abdominal: Normal Bowel Sounds, Soft, Non-Tender Back Exam: Normal Inspection. No: CVA Tenderness (R) Neurological: Alert, Oriented, Normal Cognition ED GENERAL MEDICAL PROCEDURES - Additional/Other Procedure(s) Other (Free Text) Procedure(s): Chemical cardioversion shortly after arrival the patient received 6 mg of adenosine which converted her rate from the 170s to the 90s. Patient felt much better after this however she still has a sensation of some chest pressure. #1 Interpretation EKG Date: 02/12/21 Time: 00:49 Rhythm: Other (SVT regular rhythm) Rate (Beats/Min): 169 Harrison: Normal P-Wave: Absent (Perhaps in T wave) QRS: Normal ST-T: Depressed (Inferior septal lateral could be rate related) QT: Normal Comparison: Change From Previous EKG (Now in SVT) EKG Interpretation Comments: Abnormal EKG #2 Interpretation EKG Date: 02/12/21 Time: 00:53 Rate (Beats/Min): 98 Harrison: Normal P-Wave: Present QRS: Normal ST-T: Other (Anteroseptal ST depression mild probably related to the most recent tachycardia) QT: Normal Comparison: Change From Previous EKG (Improving tachycardia) #3 Interpretation EKG Date: 02/12/21 Time: 02:11 Rhythm: NSR Rate (Beats/Min): 83 Harrison: Normal P-Wave: Present QRS: Normal ST-T: Normal QT: Normal Comparison: No Change (No significant change from 07/14/2019 ST depression noted on the EKG immediately post chemical cardioversion has resolved) Course - Vital Signs Last Recorded V/S: Last Vital Signs Temp 36.5 C 02/12/21 00:47 Pulse 174 H 02/12/21 00:47 Resp 20 02/12/21 00:47 BP 150/105 H 02/12/21 00:47 Pulse Ox 99 02/12/21 00:47 - Orders/Labs/Meds Orders: Active Orders 24 hr Category Date Time Status EKG 12 Lead [EKG Documentation Completion] [RC] STAT Care 02/12/21 00:49 Active EKG 12 Lead [EKG Documentation Completion] [RC] URGENT Care 02/12/21 00:53 Active EKG Documentation Completion [RC] STAT Care 02/12/21 01:59 Active Chest 1V Frontal [CR] Stat Exams 02/12/21 00:56 Taken Labs: Laboratory Tests 02/12/21 02/12/21 02/12/21 Range/Units 00:49 00:49 00:49 WBC 10.83 H (3.98-10.04) K/mm3 RBC 4.68 (3.98-5.22) M/mm3 Hgb 15.1 (11.2-15.7) gm/dl Hct 43.1 (34.1-44.9) % MCV 92.1 (79.4-94.8) fl MCH 32.3 H (25.6-32.2) pg MCHC 35.0 (32.2-35.5) g/dl RDW Std Deviation 42.9 (36.4-46.3) fL Plt Count 309 (182-369) K/mm3 MPV 10.1 (9.4-12.3) fl Neut % (Auto) 57.6 (34.0-71.1) % Lymph % (Auto) 32.2 (19.3-51.7) % Rawlins % (Auto) 7.2 (4.7-12.5) % Eos % (Auto) 2.3 (0.7-5.8) Baso % (Auto) 0.3 (0.1-1.2) % Neut # (Auto) 6.24 H (1.56-6.13) K/mm3 Lymph # (Auto) 3.49 (1.18-3.74) K/mm3 Rawlins # (Auto) 0.78 H (0.24-0.36) K/mm3 Eos # (Auto) 0.25 (0.04-0.36) K/mm3 Baso # (Auto) 0.03 (0.01-0.08) K/mm3 PT 10.4 (9.7-12.0) SECONDS INR 0.97 APTT 26.5 (21.7-31.4) SECONDS Sodium 143 (136-145) mEq/L Potassium 3.9 (3.5-5.1) mEq/L Chloride 105 (98-107) mEq/L Carbon Dioxide 28 (21-32) mEq/L Anion Gap 13.9 (5-15) BUN 18 (7-18) mg/dL Creatinine 1.1 H (0.55-1.02) mg/dL Est Cr Clr Drug Dosing 47.85 mL/min Estimated GFR (MDRD) 52 (>60) mL/min BUN/Creatinine Ratio 16.4 (14-18) Glucose 124 H (70-99) mg/dL Calcium 9.2 (8.5-10.1) mg/dL Magnesium 1.9 (1.8-2.4) mg/dL Total Bilirubin 0.6 (0.2-1.0) mg/dL AST 26 (15-37) U/L ALT 60 H (14-59) U/L Alkaline Phosphatase 126 H (46-116) U/L Troponin I < 0.017 (0.00-0.056) ng/mL Total Protein 7.0 (6.4-8.2) g/dl Albumin 3.8 (3.4-5.0) g/dl Globulin 3.2 gm/dL Albumin/Globulin Ratio 1.2 (1-2) 02/12/21 Range/Units 03:06 WBC (3.98-10.04) K/mm3 RBC (3.98-5.22) M/mm3 Hgb (11.2-15.7) gm/dl Hct (34.1-44.9) % MCV (79.4-94.8) fl MCH (25.6-32.2) pg MCHC (32.2-35.5) g/dl RDW Std Deviation (36.4-46.3) fL Plt Count (182-369) K/mm3 MPV (9.4-12.3) fl Neut % (Auto) (34.0-71.1) % Lymph % (Auto) (19.3-51.7) % Rawlins % (Auto) (4.7-12.5) % Eos % (Auto) (0.7-5.8) Baso % (Auto) (0.1-1.2) % Neut # (Auto) (1.56-6.13) K/mm3 Lymph # (Auto) (1.18-3.74) K/mm3 Rawlins # (Auto) (0.24-0.36) K/mm3 Eos # (Auto) (0.04-0.36) K/mm3 Baso # (Auto) (0.01-0.08) K/mm3 PT (9.7-12.0) SECONDS INR APTT (21.7-31.4) SECONDS Sodium (136-145) mEq/L Potassium (3.5-5.1) mEq/L Chloride (98-107) mEq/L Carbon Dioxide (21-32) mEq/L Anion Gap (5-15) BUN (7-18) mg/dL Creatinine (0.55-1.02) mg/dL Est Cr Clr Drug Dosing mL/min Estimated GFR (MDRD) (>60) mL/min BUN/Creatinine Ratio (14-18) Glucose (70-99) mg/dL Calcium (8.5-10.1) mg/dL Magnesium (1.8-2.4) mg/dL Total Bilirubin (0.2-1.0) mg/dL AST (15-37) U/L ALT (14-59) U/L Alkaline Phosphatase (46-116) U/L Troponin I < 0.017 (0.00-0.056) ng/mL Total Protein (6.4-8.2) g/dl Albumin (3.4-5.0) g/dl Globulin gm/dL Albumin/Globulin Ratio (1-2) Meds: Medications Discontinued Medications Generic Name Dose Route Start Last Admin Trade Name Raimundoq PRN Reason Stop Dose Admin Acetaminophen 975 mg 02/12/21 02:22 02/12/21 02:27 Acetaminophen 325 Mg Tab PO 02/12/21 02:23 975 mg NOW ONE Administration Adenosine Confirm 02/12/21 00:47 02/12/21 01:05 Adenosine 6 Mg/2 Ml Sdv Administered 02/12/21 00:48 Not Given Dose 6 mg .ROUTE .STK-MED ONE Adenosine Confirm 02/12/21 00:48 02/12/21 02:24 Adenosine 12 Mg/4 Ml Sdv Administered 02/12/21 00:49 Not Given Dose 12 mg .ROUTE .STK-MED ONE Adenosine 6 mg 02/12/21 00:59 02/12/21 00:50 Adenosine 6 Mg/2 Ml Sdv IVPUSH 02/12/21 01:00 6 mg NOW ONE Administration - Re-Assessments/Exams Free Text/Narrative Re-Assessment/Exam: 02/12/21 02:23 Patient continues to improve post chemical cardioversion. She received adenosine for her SVT. Current postconversion EKG had some mild ST depression I did recheck a third EKG and this ST depression has resolved. We will check a second troponin at 3. The patient has some residual chest discomfort this is much better than it was and seems to be improving over time. Her biggest complaint right now is she has a headache. Patient thinks Tylenol will help nicely with this we will give 975 mg of Tylenol. 02/12/21 04:03 Second troponin is below detectable limits patient's headache is gone she has no chest discomfort at this time she would really like to go home. This is reasonable. Recommend no medication changes at this time. She needs follow-up in the clinic. Departure - Departure Time of Disposition: 04:03 Disposition: Home, Self-Care 01 Clinical Impression: Supraventricular tachycardia - Discharge Information Referrals: Dianne Cottrell BUILDING CONSTRUCTION FOREMAN [Primary Care Provider] - Forms: ED Department Discharge Additional Instructions: Return to the emergency room with any questions problems or concerning symptoms. Follow-up with your regular healthcare provider this next week for recheck. At this point no changes to your current medications. Unless a allergy came up or a severe side effect, consider restarting a baby aspirin 1 daily Sepsis Event Note (ED) - Focused Exam Vital Signs: Vital Signs Temp Pulse Resp BP Pulse Ox 02/12/21 00:47 36.5 C 174 H 20 150/105 H 99 - My Orders Last 24 Hours: My Active Orders 02/12/21 00:49 EKG 12 Lead [EKG Documentation Completion] [RC] STAT 02/12/21 00:53 EKG 12 Lead [EKG Documentation Completion] [RC] URGENT 02/12/21 00:56 Chest 1V Frontal [CR] Stat 02/12/21 01:59 EKG Documentation Completion [RC] STAT - Assessment/Plan Last 24 Hours: My Active Orders 02/12/21 00:49 EKG 12 Lead [EKG Documentation Completion] [RC] STAT 02/12/21 00:53 EKG 12 Lead [EKG Documentation Completion] [RC] URGENT 02/12/21 00:56 Chest 1V Frontal [CR] Stat 02/12/21 01:59 EKG Documentation Completion [RC] STAT
[2021-02-12] MEDS ORDERED: Adenosine 12 MG/4 ML SDV ONE (00:48)
[2021-02-12] MEDS ORDERED: Adenosine 6 MG/2 ML SDV IVPUSH ONE (00:59)
[2021-02-12] MEDS ORDERED: Acetaminophen 325 MG Tab PO ONE (02:22)
--- NOTE | 2021-02-12 06:29 | CR ---
Chest: AP view of the chest was obtained. Comparison: Prior chest x-ray of 12/16/20. Heart size and mediastinum are normal. Lungs are clear with no acute parenchymal change. No acute osseous abnormality is appreciated. Impression: 1. Nothing acute is appreciated on AP chest x-ray. Diagnostic code #1
== END 2021-02-12 04:20 | disposition home or self-care (01) ==
LOC: JD.ED 00:40
DX: I47.1 Supraventricular tachycardia (principal); I10 Essential (primary) hypertension; E66.9 Obesity, unspecified; Z68.30 Body mass index [BMI] 30.0-30.9, adult; Z88.1 Allergy status to other antibiotic agents; Z91.09 Other allergy status, other than to drugs and biological substances; Z88.0 Allergy status to penicillin; Z91.013 Allergy to seafood; Z88.8 Allergy status to other drugs, medicaments and biological substances
CPT/HCPCS: 36415; 71045; 80053; 83735; 84484; 85025; 85610; 85730; 93005; 96374; 99285; A9270; J0153; 93010; 99284

== ENCOUNTER 2021-03-20 21:54 | Emergency (ER) | payer MEDICAID | END 2021-03-20 22:25 | disposition left against medical advice (07) | LOC: JD.ED 21:54 | DX: R11.10 Vomiting, unspecified (principal); Z53.21 Procedure and treatment not carried out due to patient leaving prior to being seen by health care provider ==

== ENCOUNTER 2021-12-31 11:15 | Emergency (ER) | payer MEDICAID ==
[2021-12-31] MEDS ORDERED: Ketorolac 60 MG/2 ML SDV IM ONE (11:55)
== END 2021-12-31 13:45 | disposition home or self-care (01) ==
LOC: JD.ED 11:15
DX: S80.211A Abrasion, right knee, initial encounter (principal); M25.561 Pain in right knee; I10 Essential (primary) hypertension; F41.9 Anxiety disorder, unspecified; E66.9 Obesity, unspecified; Z79.899 Other long term (current) drug therapy; Z91.013 Allergy to seafood; Z88.1 Allergy status to other antibiotic agents; Z88.8 Allergy status to other drugs, medicaments and biological substances; W10.8XXA Fall (on) (from) other stairs and steps, initial encounter
CPT/HCPCS: 73562; 96372; 99283; J1885; 99284

== ENCOUNTER 2022-03-24 14:58 | Emergency (ER) | payer MEDICAID ==
[2022-03-24] MEDS ORDERED: Sodium Chloride 0.9% 10 ML Syringe FLUSH PRN (16:00)
== END 2022-03-24 18:30 | disposition home or self-care (01) ==
LOC: JD.ED 14:58
DX: R10.9 Unspecified abdominal pain (principal); I10 Essential (primary) hypertension; E66.9 Obesity, unspecified; Z68.37 Body mass index [BMI] 37.0-37.9, adult; Z88.1 Allergy status to other antibiotic agents; Z88.2 Allergy status to sulfonamides; Z91.048 Other nonmedicinal substance allergy status; Z91.013 Allergy to seafood; Z88.8 Allergy status to other drugs, medicaments and biological substances; Z79.899 Other long term (current) drug therapy; Z90.49 Acquired absence of other specified parts of digestive tract
CPT/HCPCS: 36415; 74176; 80053; 81001; 83735; 85025; 86140; 99284; J3490

== ENCOUNTER 2024-09-12 07:41 | Emergency (ER) | payer OTHER ==
[2024-09-12 08:55] LABS: BASOPHILS PERCENT AUTO 0.6 % (0.0-1.0); EOSINOPHILS ABSOLUTE AUTO 0.2 K/mm3 (0.0-0.4); EOSINOPHILS PERCENT AUTO 3.2 % (0.0-6.0); HEMATOCRIT 39.4 % (37.0-47.0); HEMOGLOBIN 13.7 gm/dl (12.0-16.0); IMMATURE GRAN ABSOLUTE AUTO 0.04 K/mm3 (0.00-0.05); IMMATURE GRAN PERCENT AUTO 0.8 % (0.0-0.4); LYMPHOCYTES PERCENT AUTO 19.6 % (24.0-44.0); MEAN CORPUSCULAR HEMOGLOBIN 31.1 pg (28.0-32.0); MEAN CORPUSCULAR HGB CONC 34.8 g/dl (32.0-36.0); MEAN CORPUSCULAR VOLUME 89.5 fl (83.0-99.0); MEAN PLATELET VOLUME 9.8 fl (9.4-12.3); MONOCYTES ABSOLUTE AUTO 0.4 K/mm3 (0.0-0.8); MONOCYTES PERCENT AUTO 8.4 % (0.0-8.0); NEUTROPHILS ABSOLUTE AUTO 3.6 K/mm3 (1.8-7.7); NEUTROPHILS PERCENT AUTO 67.4 % (41.0-71.0); PLATELET COUNT,PLT 238 K/mm3 (150-400); WHITE BLOOD CELL COUNT,WBC 5.26 K/mm3 (3.9-11.3)
[2024-09-12] MEDS: droPERidol 2.5 MG/ML SDV IV ONE (08:55)
[2024-09-12 08:56] LABS: APPEARANCE,URINE CLEAR (Clear); BILIRUBIN,URINE NEGATIVE (Negative); COLOR,URINE LIGHT YELLOW (Yellow); GLUCOSE,URINE NEGATIVE (Negative); KETONES,URINE NEGATIVE (Negative); LEUKOCYTE ESTERASE,URINE NEGATIVE (Negative); NITRITE,URINE NEGATIVE (Negative); OCCULT BLOOD,URINE TRACE-INTACT (Negative); PH,URINE 6.5 (5.0-8.0); PROTEIN,URINE NEGATIVE (Negative); UROBILINOGEN,URINE 0.2 (0.2-1.0)
[2024-09-12 09:07] LABS: BACTERIA,URINE FEW /hpf (FEW); MUCUS,URINE RARE /hpf (FEW); SQUAMOUS EPITHELIAL CELLS,UR 0-5 /hpf (0-5); WBC,URINE 0-5 /hpf (0-5)
[2024-09-12 09:29] LABS: A/G RATIO 1.2 (1-2); ALANINE AMINOTRANSFERASE,ALT 37 U/L (14-59); ALBUMIN 3.5 g/dl (3.4-5.0); ALKALINE PHOSPHATASE 141 U/L (46-116); ANION GAP 15.6 (5-15); ASPARTATE AMNIOTRANSFERASE,AST 23 U/L (15-37); BILIRUBIN TOTAL 0.9 mg/dL (0.2-1.0); BLOOD UREA NITROGEN,BUN 16 mg/dL (7-18); CARBON DIOXIDE,CO2 26 mEq/L (21-32); CHLORIDE,CL 103 mEq/L (98-107); EST CRCL DRUG DOSING (CG) 50.27 mL/min; ESTIMATED GFR 67 mL/min (>60); GLUCOSE RANDOM 120 mg/dL (70-99); POTASSIUM,K 4.6 mEq/L (3.5-5.1); PROTEIN TOTAL,TP 6.4 g/dl (6.4-8.2); SODIUM,NA 140 mEq/L (136-145)
[2024-09-12 09:41] LABS: TROPONIN I HIGH SENSITIVITY < 4 pg/mL (<=51)
== END 2024-09-12 13:37 | disposition left against medical advice (07) ==
LOC: JD.ED 07:41
DX: R07.9 Chest pain, unspecified (principal); R51.9 Headache, unspecified; I10 Essential (primary) hypertension; E66.9 Obesity, unspecified; Z88.1 Allergy status to other antibiotic agents; Z88.2 Allergy status to sulfonamides; Z88.8 Allergy status to other drugs, medicaments and biological substances; Z91.013 Allergy to seafood; Z79.899 Other long term (current) drug therapy; Z68.37 Body mass index [BMI] 37.0-37.9, adult; Z90.49 Acquired absence of other specified parts of digestive tract; Z90.710 Acquired absence of both cervix and uterus
CPT/HCPCS: 36415; 70450; 71046; 80053; 81001; 84484; 85025; 87428; 93005; 96374; 99285; J1790; 93010; 99284

== ENCOUNTER 2024-10-23 07:25 | Day surgery (SDC) | payer OTHER ==
[~2024-10-23 07:25] MED LIST changes: -Lactated Ringers 1,000 ML IV SCH; -Lidocaine 1%/Sod Bicarbonate in NS 8.4% 1 ML Syringe IDERM PRN; +Lidocaine 2% 5 ML SDV ONE; +Sodium Chloride 0.9% 10 ML Syringe FLUSH SCH; +propofoL 500 MG/50 ML 50 ML ONE
[2024-10-23] MEDS: Lactated Ringers 1,000 ML IV SCH (07:50)
[2024-10-23] MEDS: Scopalamine 1mg/3day Transdermal Patch TOP ONE (08:07)
[2024-10-23] MEDS ORDERED: Ondansetron 4 MG/2 ML SDV ONE (08:22)
[2024-10-23] MEDS ORDERED: Glycopyrrolate 0.2 MG/ML 2 ML SDV ONE (08:27)
[2024-10-23] MEDS ORDERED: Propofol 200 MG/20 ML SDV ONE (08:49)
== END 2024-10-23 09:45 | disposition home or self-care (01) ==
LOC: JD.SDS 07:25
PROVIDERS: ATTEND Surgery
DX: Z12.11 Encounter for screening for malignant neoplasm of colon (principal); R19.5 Other fecal abnormalities; D12.3 Benign neoplasm of transverse colon; K44.9 Diaphragmatic hernia without obstruction or gangrene; K57.30 Diverticulosis of large intestine without perforation or abscess without bleeding; K62.89 Other specified diseases of anus and rectum; K21.9 Gastro-esophageal reflux disease without esophagitis; I10 Essential (primary) hypertension; Z87.891 Personal history of nicotine dependence; Z79.899 Other long term (current) drug therapy; Z88.2 Allergy status to sulfonamides; Z88.0 Allergy status to penicillin; Z91.013 Allergy to seafood; Z91.048 Other nonmedicinal substance allergy status
CPT/HCPCS: 43239; 45380; A9270; J1596; J2003; J2405; J2704; J7120; 00813

== ENCOUNTER 2025-05-15 09:29 | Emergency (ER) | payer SELFPAY ==
[2025-05-15] MEDS ORDERED: Sodium Chloride 0.9% 10 ML Syringe FLUSH PRN (11:09)
[2025-05-15 11:21] LABS: APPEARANCE,URINE CLEAR (Clear); GLUCOSE,URINE NEGATIVE (Negative); OCCULT BLOOD,URINE TRACE-LYSED (Negative)
[2025-05-15] MEDS: LORazepam 2 MG/ML SDV IVPUSH ONE (11:21)
[2025-05-15] MEDS: fentaNYL 100 MCG/2 ML SDV IVPUSH ONE (11:26)
[2025-05-15 11:59] LABS: BASOPHILS ABSOLUTE AUTO 0.0 K/mm3 (0.0-0.2); BASOPHILS PERCENT AUTO 0.6 % (0.0-1.0); EOSINOPHILS ABSOLUTE AUTO 0.1 K/mm3 (0.0-0.4); EOSINOPHILS PERCENT AUTO 1.6 % (0.0-6.0); IMMATURE GRAN ABSOLUTE AUTO 0.04 K/mm3 (0.00-0.05); IMMATURE GRAN PERCENT AUTO 0.6 % (0.0-0.4); LYMPHOCYTES ABSOLUTE AUTO 1.1 K/mm3 (1.0-4.8); LYMPHOCYTES PERCENT AUTO 17.7 % (24.0-44.0); MEAN PLATELET VOLUME 9.8 fl (9.4-12.3); MONOCYTES ABSOLUTE AUTO 0.3 K/mm3 (0.0-0.8); MONOCYTES PERCENT AUTO 5.0 % (0.0-8.0); NEUTROPHILS ABSOLUTE AUTO 4.6 K/mm3 (1.8-7.7); NEUTROPHILS PERCENT AUTO 74.5 % (41.0-71.0); NRBC ABSOLUTE 0.00 (0.00-0.02); NRBC PERCENT 0.0 % (0.0-0.2); PLATELET COUNT,PLT 215 K/mm3 (150-400); RED BLOOD CELL COUNT 4.39 M/mm3 (4.10-5.30); WHITE BLOOD CELL COUNT,WBC 6.21 K/mm3 (3.9-11.3)
[2025-05-15] MEDS: Sodium Chloride 0.9% 10 ML Syringe FLUSH PRN (12:10)
[2025-05-15] MEDS: Iopamidol 755 Mg/ML 100 ML Bottle IVPUSH ONE (12:10)
[2025-05-15 12:17] LABS: A/G RATIO 1.2 (1-2); ALANINE AMINOTRANSFERASE,ALT 37.0 U/L (14-59); ASPARTATE AMNIOTRANSFERASE,AST 22.0 U/L (15-37); BILIRUBIN TOTAL 0.7 mg/dL (0.2-1.0); BLOOD UREA NITROGEN,BUN 15.0 mg/dL (7-18); CARBON DIOXIDE,CO2 28.0 mEq/L (21-32); CHLORIDE,CL 107.0 mEq/L (98-107); CREATININE 0.8 mg/dL (0.55-1.02); EST CRCL DRUG DOSING (CG) 62.84 mL/min; ESTIMATED GFR 87.0 mL/min (>60); GLUCOSE RANDOM 112.0 mg/dL (70-99); POTASSIUM,K 4.3 mEq/L (3.5-5.1); PROTEIN TOTAL,TP 6.7 g/dl (6.4-8.2); SODIUM,NA 141.0 mEq/L (136-145)
== END 2025-05-15 16:05 | disposition home or self-care (01) ==
LOC: JD.ED 09:29
DX: J32.9 Chronic sinusitis, unspecified (principal); R51.9 Headache, unspecified; R50.9 Fever, unspecified; I10 Essential (primary) hypertension; E66.9 Obesity, unspecified; Z88.1 Allergy status to other antibiotic agents; Z88.2 Allergy status to sulfonamides; Z88.8 Allergy status to other drugs, medicaments and biological substances; Z91.013 Allergy to seafood; Z91.09 Other allergy status, other than to drugs and biological substances; Z79.899 Other long term (current) drug therapy; Z90.49 Acquired absence of other specified parts of digestive tract; Z90.710 Acquired absence of both cervix and uterus; Z68.37 Body mass index [BMI] 37.0-37.9, adult
CPT/HCPCS: 36415; 70450; 70496; 70498; 71045; 80053; 81001; 85025; 87040; 93005; 96374; 96375; 99284; J2060; J3010; J7030; Q9967; 93010